=== PATIENT | male | born 1975 ===

== ENCOUNTER 2020-11-08 22:24 | Inpatient (IN) ==
[2020-11-08] MEDS ORDERED: IOPAMIDOL 100 ML BOTTLE IV ONE (22:25)
[2020-11-08] MEDS ORDERED: ONDANSETRON 4 MG/2 ML VIAL IV ONE (22:38)
[2020-11-08] MEDS ORDERED: VANCOMYCIN 2,000 MG in 0.9 % SODIUM CHLORIDE 500 ML IV ONE (22:38)
[2020-11-08] MEDS ORDERED: 0.9 % SODIUM CHLORIDE 1,000 ML IV ONE (22:38)
[2020-11-08] MEDS ORDERED: morphine 4 MG/ML VIAL IV PRN (22:38)
--- NOTE | 2020-11-08 22:38 | Emergency Department Note ---
HPI General Chief complaint: Extremity Problem,Nontraumatic Stated complaint: rg. leg edema Time Seen by Provider: 11/08/20 22:38 Source: EMS Mode of arrival: EMS Limitations: no limitations History of Present Illness HPI Narrative: Narrative: Patient is a 45-year-old male presents with a chief complaint of weakness fatigue and right lower extremity swelling and redness. Patient reports his symptoms started last Monday denies any history of MRSA denies any trauma reports he is normally able to ambulate without difficulty however he is having worsening pain redness and swelling from the right knee down. Denies any history of insulin-dependent diabetes. Denies headache neck pain chest pain or shortness of breath. Related Data Home Medications Medication Instructions Recorded Confirmed naloxone 4 mg/actuation nasal spray 1 spray INTRANASAL Q5MIN PRN 12/12/18 11/08/20 Previous Rx's Medication Instructions Recorded hydrocodone 10 mg-acetaminophen 1 tab PO .Q6-8H PRN #120 tab 10/13/20 325 mg tablet tramadol 300 mg tablet,extended 300 mg PO QDAY #30 tab 10/13/20 release 24 hr verapamil 360 mg 24 hr 360 mg PO QDAY #90 cap 10/13/20 capsule,extended release Allergies Allergy/AdvReac Type Severity Reaction Status Date / Time Penicillins AdvReac Unknown Unknown Verified 11/09/20 03:17 Review of Systems ROS ROS Narrative: Narrative: All systems ED: reviewed and negative except as stated. PFSH Narrative Patient History Narrative: Narrative: Medical/Surgical/Family History All Active Problems Cellulitis of right lower extremity (Acute) Leukocytosis (Acute) Elevated lactic acid level (Acute) Hyponatremia (Acute) URI (upper respiratory infection) (Acute) Allergic reaction to COVID-19 vaccine (Acute) Hypertension (Acute) Migraine (Acute) Insulin resistance (Chronic) Hypotestosteronemia (Chronic) Poor sleep (Chronic) Back pain (Chronic) Obesity (Chronic) Rhinitis, allergic (Chronic) HTN (hypertension) (Chronic) Fatigue (Chronic) Testosterone deficiency (Chronic) Metabolic syndrome X (Chronic) Chronic pain syndrome (Chronic) Lumbar back pain with radiculopathy affecting left lower extremity (Chronic) BMI 50.0-59.9, adult (Chronic) Anxiety disorder (Chronic) Depression (Chronic) Insomnia (Chronic) Medical History Anxiety disorder Back pain BMI 50.0-59.9, adult Chronic pain syndrome Depression Fatigue HTN (hypertension) Hypotestosteronemia Insomnia Insulin resistance Lumbar back pain with radiculopathy affecting left lower extremity Metabolic syndrome X Obesity Poor sleep Rhinitis, allergic Testosterone deficiency Surgical History No pertinent past surgical history Family History Mother Seizures Arthritis Father , Insulin OD Diabetes HTN (hypertension) Chronic mental illness Alcoholism Arthritis Social History Smoking Status: Never smoker Exam Narrative Narrative: Narrative: General Limitations: no limitations General appearance: Present alert Head Head: Present atraumatic and normocephalic Eye Eye: Present normal appearance, PERRL and EOMI ENT ENT: Present normal exam, normal oropharynx and mucous membranes dry Neck Neck: Present normal inspection, full ROM and trachea midline Chest Chest: Present normal inspection and symmetric chest wall rise Respiratory Respiratory: Present normal lung sounds bilaterally Cardiovascular Cardiovascular: Present regular rate and normal rhythm Adbominal Abdominal: Present soft, normal bowel sounds and other (Obese); Absent tenderness, guarding, rebound, organomegaly and pulsatile mass Extremities Extremities: Present tenderness, pedal edema, pretibial edema and other (Right lower extremity is diffusely tender and erythematous, compartments are soft, neurovascularly in tact, unable to bear weight no fluctuance or induration no inguinal lymphadenopathy or streaking.) Expanded Lower Extremity Knee: Present tenderness, swelling and erythema Lower leg: Present tenderness, swelling and erythema Ankle: Present tenderness, swelling and erythema Back Back: Present normal inspection and full ROM; Absent tenderness Neurological Neurological: Present alert, oriented X3, CN II-XII intact, normal gait, motor sensory deficit and reflexes normal Psychiatric Psychiatric: Present normal affect Skin Skin: Present erythema and other (Erythema noted diffusely to the right lower extremity from the knee down there are 2 separate areas of erythema with blistering, negative Nikolsky sign. Compartments soft, neurovascular tach.) Course Course Course Narrative: Initial history and physical exam is concerning for celluli tis. No free air seen on imaging, no abscess seen on imaging the CT of the right lower extremity with contrast shows diffuse edema of the right lower extremity mild associated skin thickening, appearance is nonspecific possibly reflecting cellulitis, anasarca or venous stasis. Right lower extremity ultrasound duplex right lower extremity the vein shows no deep venous thrombosis in the right lower extremity. Patient was given 3 L of IV fluids in the emergency department blood cultures were obtained, IV vancomycin and IV Rocephin given in the emergency department I spoke with the hospitalist Dr. Gupta who agreed to accept this patient for right lower extremity cellulitis, elevated lactate elevated white blood cell count and hyponatremia. Vital Signs Vital signs: Vital Signs Temperature 97.3 F 11/08/20 22:25 Pulse Rate 101 H 11/08/20 22:25 Respiratory Rate 20 11/08/20 22:25 Blood Pressure 135/68 11/08/20 22:25 Pulse Oximetry (%) 96 11/08/20 22:25 Temperature 100.6 F H 11/09/20 04:01 Pulse Rate 98 H 11/09/20 04:01 Respiratory Rate 18 11/09/20 04:01 Blood Pressure 142/81 11/09/20 04:01 Pulse Oximetry (%) 85 L 11/09/20 04:01 [facility] MDM Narrative Medical decision making narrative: Narrative: Right lower extremity cellulitis. Lab Data Result diagrams: 11/08/20 22:45 11/08/20 22:45 Labs: Lab Results 11/08/20 11/08/20 11/08/20 Range/Units 22:45 22:45 22:45 WBC 20.1 H (4.5-11.0) K/mcL RBC 4.12 L (4.50-5.90) M/mcL Hgb 12.1 L (13.5-16.5) g/dL Hct 39.1 L (41.0-55.0) % MCV 94.9 (80.0-100.0) fL MCH 29.4 (26.0-34.0) pg MCHC 30.9 L (31.0-36.0) g/dL RDW 14.1 (11.5-14.5) % Plt Count 146 (140-440) K/mcL MPV 11.0 H (7.4-10.4) fL Neut % (Auto) 84.9 H (38.0-78.0) % Lymph % (Auto) 6.7 L (15.0-49.0) % [place] % (Auto) 7.8 (1.0-12.0) % Eos % (Auto) 0.1 (0.0-7.0) % Baso % (Auto) 0.5 (0.0-2.0) % Lymph # (Auto) 1.35 L (1.50-4.80) K/mcL [place] # (Auto) 1.56 H (0.10-0.90) K/mcL Eos # (Auto) 0.02 (0.00-0.70) K/mcL Baso # (Auto) 0.10 (0.00-0.20) K/mcL Absolute Neutrophils 17.04 H (1.80-8.00) K/mcL ESR 95 H (0-15) mm/hr VBG Lactic Acid (0.5-2.0) mmol/L Sodium 130 L (133-145) mmol/L Potassium 4.0 (3.3-5.1) mmol/L Chloride 90 L (96-108) mmol/L Carbon Dioxide 17 L (22-30) mmol/L Anion Gap 23.0 H (8.0-16.0) BUN 13 (6-20) mg/dL Creatinine 1.2 (0.7-1.2) mg/dL GFR Calculation 73 Glucose 90 (70-105) mg/dL Calcium 8.8 (8.6-10.4) mg/dL Total Bilirubin 1.3 H (0.1-1.0) mg/dL AST 68 H (<40) U/L ALT 29 (<40) U/L Alkaline Phosphatase 112 (39-117) U/L C-Reactive Protein (0.03-0.80) mg/dL Total Protein 7.8 (5.9-8.4) gm/dL Albumin 2.7 L (3.2-5.2) gm/dL Globulin 5.1 H (2.2-3.7) gm/dL Albumin/Globulin Ratio 0.5 L (1.0-2.3) 11/08/20 11/08/20 Range/Units 22:45 23:05 WBC (4.5-11.0) K/mcL RBC (4.50-5.90) M/mcL Hgb (13.5-16.5) g/dL Hct (41.0-55.0) % MCV (80.0-100.0) fL MCH (26.0-34.0) pg MCHC (31.0-36.0) g/dL RDW (11.5-14.5) % Plt Count (140-440) K/mcL MPV (7.4-10.4) fL Neut % (Auto) (38.0-78.0) % Lymph % (Auto) (15.0-49.0) % [place] % (Auto) (1.0-12.0) % Eos % (Auto) (0.0-7.0) % Baso % (Auto) (0.0-2.0) % Lymph # (Auto) (1.50-4.80) K/mcL [place] # (Auto) (0.10-0.90) K/mcL Eos # (Auto) (0.00-0.70) K/mcL Baso # (Auto) (0.00-0.20) K/mcL Absolute Neutrophils (1.80-8.00) K/mcL ESR (0-15) mm/hr VBG Lactic Acid 5.6 H* (0.5-2.0) mmol/L Sodium (133-145) mmol/L Potassium (3.3-5.1) mmol/L Chloride (96-108) mmol/L Carbon Dioxide (22-30) mmol/L Anion Gap (8.0-16.0) BUN (6-20) mg/dL Creatinine (0.7-1.2) mg/dL GFR Calculation Glucose (70-105) mg/dL Calcium (8.6-10.4) mg/dL Total Bilirubin (0.1-1.0) mg/dL AST (<40) U/L ALT (<40) U/L Alkaline Phosphatase (39-117) U/L C-Reactive Protein 32.00 H (0.03-0.80) mg/dL Total Protein (5.9-8.4) gm/dL Albumin (3.2-5.2) gm/dL Globulin (2.2-3.7) gm/dL Albumin/Globulin Ratio (1.0-2.3) ED POC Tests ED POC Tests: JULISA - SARS Antigen Negative Discharge Plan Patient/Caregiver Discharge Instructions Pt seen by ROOM CLEANER/PA only: No Clinical Impression: Cellulitis of right lower extremity, Elevated lactic acid level, Hyponatremia Leukocytosis Qualifiers: Leukocytosis type: unspecified Qualified Code(s): D72.829 - Elevated white blood cell count, unspecified Patient Disposition: Xfer As Inpt ([facility]) Condition: Serious Discharge Date/Time: 11/09/20 02:11 Discharge Location: [facility]
[2020-11-09 00:04] LABS: Basophils % (Auto) 0.5 % (0.0-2.0); Eosinophils # (Auto) 0.02 K/mcL (0.00-0.70); Eosinophils % (Auto) 0.1 % (0.0-7.0); Hematocrit 39.1 % (41.0-55.0); Hemoglobin 12.1 g/dL (13.5-16.5); Lymphocytes # (Auto) 1.35 K/mcL (1.50-4.80); Lymphocytes % (Auto) 6.7 % (15.0-49.0); Mean Cell Volume 94.9 fL (80.0-100.0); Mean Corpuscular HGB Conc 30.9 g/dL (31.0-36.0); Monocytes # (Auto) 1.56 K/mcL (0.10-0.90); Monocytes % (Auto) 7.8 % (1.0-12.0); Neutrophils % (Auto) 84.9 % (38.0-78.0); Platelet Count 146 K/mcL (140-440); RBC 4.12 M/mcL (4.50-5.90); Red Cell Distribution Width 14.1 % (11.5-14.5); WBC 20.1 K/mcL (4.5-11.0)
[2020-11-09 00:22] LABS: ALT/SGPT 29 U/L (<40); AST/SGOT 68 U/L (<40); Albumin 2.7 gm/dL (3.2-5.2); Albumin/Globulin Ratio 0.5 (1.0-2.3); Alkaline Phosphatase 112 U/L (39-117); Bilirubin,Total 1.3 mg/dL (0.1-1.0); Blood Urea Nitrogen 13 mg/dL (6-20); Calcium 8.8 mg/dL (8.6-10.4); Carbon Dioxide 17 mmol/L (22-30); Chloride 90 mmol/L (96-108); Globulin 5.1 gm/dL (2.2-3.7); Glomerular Filtration Rate 73; Glucose 90 mg/dL (70-105)
[2020-11-09] MEDS ORDERED: 0.9 % SODIUM CHLORIDE 1,000 ML IV ONE ×2 (00:36→01:14)
[2020-11-09] MEDS ORDERED: morphine 4 MG/ML VIAL IV ONE (00:54)
[2020-11-09] MEDS ORDERED: cefTRIAXone 2 GM in DEXTROSE 5% IN WATER 50 ML IV ONE (01:02)
[2020-11-09] MEDS ORDERED: ACETAMINOPHEN 325 MG TABLET PO PRN ×2 (01:04→11:38)
[2020-11-09] MEDS ORDERED: morphine 2 MG/ML VIAL IV PRN (01:04)
[2020-11-09] MEDS ORDERED: SENNOSIDES 1 TABLET PO PRN ×3 (01:04→11:38)
[2020-11-09] MEDS ORDERED: LACTULOSE 20 GM/30 ML ORAL.SOL PO PRN ×2 (01:04→11:38)
[2020-11-09] MEDS ORDERED: ONDANSETRON 4 MG/2 ML VIAL IV PRN ×2 (01:04→11:38)
[2020-11-09] MEDS ORDERED: cefTRIAXone 2 GM VIAL ONE (02:35)
[2020-11-09] MEDS: 0.9 % SODIUM CHLORIDE 1,000 ML IV SCH ×2 (04:04→10:08)
--- NOTE | 2020-11-09 04:29 | Ultrasound Report ---
CLINICAL INFORMATION: Right calf pain and swelling COMPARISON: None. FINDINGS: The entire deep venous system including the common femoral, superficial femoral, popliteal and paired trifurcation calf veins are easily compressible and show normal venous blood flow on color and spectral Doppler. No evidence of thrombus IMPRESSION: Negative exam - no evidence of deep vein thrombosis. Interpreted and Authenticated by: Christofer Saini 11/09/20
--- NOTE | 2020-11-09 04:51 | Cat Scan Report ---
CLINICAL INFORMATION: right lower extremity pain, swelling, erythema COMPARISON: None. TECHNIQUE: 90 cc of Isovue-370 were injected intravenously. 0.625 mm slice slices were obtained from the mid femur through the calf foot and ankle. Following reconstruction, 2.5 m sagittal, coronal and axial reformatted images were processed and reviewed in bone and soft tissue windows.The exam was performed using radiation dose optimization techniques including, but not limited to, automated exposure control, adjustment of the mA and/or kV according to patient size and use of iterative reconstruction technique. 262 FINDINGS: Moderate edema or cellulitis is seen throughout the subcutaneous fat of the calf and ankle. There are no discrete fluid collection. Muscles and the fascia are unremarkable-no evidence of myositis or abscess. No osseous abnormality. Patellofemoral and tibiofemoral joints, ankle mortise and all the joints of the hindfoot and midfoot are normal in width and alignment without arthritic change. IMPRESSION: Moderate edema or cellulitis in the subcutaneous fat throughout the calf foot and ankle. Interpreted and Authenticated by: Christofer Saini 11/09/20
[2020-11-09] MEDS ORDERED: 0.9 % SODIUM CHLORIDE 10 ML SYRINGE IV SCH (06:00)
[2020-11-09] MEDS ORDERED: VANCOMYCIN PER PHARMACY IV SCH ×2 (07:44→11:38)
--- NOTE | 2020-11-09 07:44 | Internal Med History&Physical ---
HPI History of Present Illness Patient information: Note initiated : 11/09/20 at 7:37 am Service Date, if different from initiated Date: [] Patient: Jamie Parker a 45 y/o M admitted on 11/09/20 for rg. leg edema. Chief Complaint: [] History of present illness: Mr. Parker is a 45 year old M Presents to the ED with right lower extremity redness and swelling and pain. Patient states last Armen started building redness in his right lower extremity which progressed since I's as well as developing tenderness over that area and some swelling. Complained of chills. Work-up in the ED was consistent with cellulitis. CT imaging revealed suresh lulitis but did not show any fasciitis or abscess. He was febrile and had a leukocytosis and lactic acidosis. Sodium mildly low. Review of Systems: Pertinent positives as above. Denies headache/fever/nausea/vomiting/chest or abdominal pain/cough/dyspnea/diarrhea. Remaining 10 point review of system reviewed negative PFSH PFSH All Active Problems Cellulitis of right lower extremity (Acute) Leukocytosis (Acute) Elevated lactic acid level (Acute) Hyponatremia (Acute) URI (upper respiratory infection) (Acute) Allergic reaction to COVID-19 vaccine (Acute) Hypertension (Acute) Migraine (Acute) Insulin resistance (Chronic) Hypotestosteronemia (Chronic) Poor sleep (Chronic) Back pain (Chronic) Obesity (Chronic) Rhinitis, allergic (Chronic) HTN (hypertension) (Chronic) Fatigue (Chronic) Testosterone deficiency (Chronic) Metabolic syndrome X (Chronic) Chronic pain syndrome (Chronic) Lumbar back pain with radiculopathy affecting left lower extremity (Chronic) BMI 50.0-59.9, adult (Chronic) Anxiety disorder (Chronic) Depression (Chronic) Insomnia (Chronic) Medical History Anxiety disorder Back pain BMI 50.0-59.9, adult Chronic pain syndrome Depression Fatigue HTN (hypertension) Hypotestosteronemia Insomnia Insulin resistance Lumbar back pain with radiculopathy affecting left lower extremity Metabolic syndrome X Obesity Poor sleep Rhinitis, allergic Testosterone deficiency Surgical History No pertinent past surgical history Family History Mother Seizures Arthritis Father , Insulin OD Diabetes HTN (hypertension) Chronic mental illness Alcoholism Arthritis Social History occupational status: 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 MEDS/ALLERGIES Home Medications and Allergies Home Medications Medication Instructions Recorded Confirmed Type naloxone 4 mg/actuation nasal spray 1 spray INTRANASAL Q5MIN PRN 12/12/18 11/08/20 History hydrocodone 10 mg-acetaminophen 1 tab PO .Q6-8H PRN #120 tab 10/13/20 11/09/20 Rx 325 mg tablet tramadol 300 mg tablet,extended 300 mg PO QDAY #30 tab 10/13/20 11/09/20 Rx release 24 hr verapamil 360 mg 24 hr 360 mg PO QDAY #90 cap 10/13/20 11/09/20 Rx capsule,extended release Allergies Allergy/AdvReac Type Severity Reaction Status Date / Time Penicillins AdvReac Unknown Unknown Verified 11/09/20 03:17 EXAM Constitutional Vitals: Temp Pulse Resp BP Pulse Ox 100.6 F H 98 H 18 142/81 85 L 11/09/20 04:01 11/09/20 04:01 11/09/20 04:01 11/09/20 04:01 11/09/20 04:01 Exam: General: Alert, Awake, No acute Distress, obese Eyes/N/T: EOMI, PERRL, dry MM Head/Neck: neck supple, normocephalic atraumatic CV: RRR, No murmurs, normal s1/s2 Pulm: Clear b/l, no wheezing/rhonchi/rales Abd: soft, nontender, +BS x4 Ext: no clubbing/cyanosis. RLE erythema/edema/tenderness Neuro: Alert, no focal deficits, moves all extremities, CN 2-12 grossly intact, symmetrical strength b/l upper/lower, sensations intact b/l upper/lower Skin: warm/dry DATA Data Completed and Pending Labs: Labs from last 24 hours 11/08/20 11/08/20 11/08/20 23:05 22:45 22:45 WBC RBC Hgb Hct MCV MCH MCHC RDW Plt Count MPV Neut % (Auto) Lymph % (Auto) [place] % (Auto) Eos % (Auto) Baso % (Auto) Lymph # (Auto) [place] # (Auto) Eos # (Auto) Baso # (Auto) Absolute Neutrophils ESR 95 H VBG Lactic Acid 5.6 H* Sodium Potassium Chloride Carbon Dioxide Anion Gap BUN Creatinine GFR Calculation Glucose Calcium Total Bilirubin AST ALT Alkaline Phosphatase C-Reactive Protein 32.00 H Total Protein Albumin Globulin Albumin/Globulin Ratio 11/08/20 11/08/20 22:45 22:45 WBC 20.1 H RBC 4.12 L Hgb 12.1 L Hct 39.1 L MCV 94.9 MCH 29.4 MCHC 30.9 L RDW 14.1 Plt Count 146 MPV 11.0 H Neut % (Auto) 84.9 H Lymph % (Auto) 6.7 L [place] % (Auto) 7.8 Eos % (Auto) 0.1 Baso % (Auto) 0.5 Lymph # (Auto) 1.35 L [place] # (Auto) 1.56 H Eos # (Auto) 0.02 Baso # (Auto) 0.10 Absolute Neutrophils 17.04 H ESR VBG Lactic Acid Sodium 130 L Potassium 4.0 Chloride 90 L Carbon Dioxide 17 L Anion Gap 23.0 H BUN 13 Creatinine 1.2 GFR Calculation 73 Glucose 90 Calcium 8.8 Total Bilirubin 1.3 H AST 68 H ALT 29 Alkaline Phosphatase 112 C-Reactive Protein Total Protein 7.8 Albumin 2.7 L Globulin 5.1 H Albumin/Globulin Ratio 0.5 L A/P Narrative A/P Narrative: A: *RLE cellulitis: *sepsis w/lactic acidosis(resolved): -febrile, leukocytosis w/bandemia *met acidosis: resolved *Hyponatremia: *HTN: *Chronic pain: *Obesity: * P: -Vanc/cefepime, clinda x48hrs, pending BC, mrsa screen -s/p ivf -cont home ccb -elevate leg -wound care -ppx: lovenox Time Spent With Patient Time: Total time spent is greater than 50% in coordination of care (as documented) at patient's floor/unit and/or counseling patient:
[2020-11-09] MEDS ORDERED: HYDROcodone/APAP 10/325MG TABLET PO PRN (07:47)
[2020-11-09] MEDS ORDERED: cefTRIAXone 2 GM in DEXTROSE 5% IN WATER 50 ML IV SCH (08:00)
[2020-11-09 08:58] LABS: Hemoglobin 11.6 g/dL (13.5-16.5); Mean Cell Volume 91.8 fL (80.0-100.0); Mean Corpuscular HGB Conc 32.2 g/dL (31.0-36.0); Mean Platelet Volume 10.1 fL (7.4-10.4); Platelet Count 156 K/mcL (140-440); RBC 3.92 M/mcL (4.50-5.90); WBC 18.8 K/mcL (4.5-11.0)
[2020-11-09] MEDS ORDERED: VANCOMYCIN 1,500 MG in 0.9 % SODIUM CHLORIDE 500 ML IV SCH (09:00)
[2020-11-09] MEDS ORDERED: TRAMADOL 300 MG PO SCH (09:00)
[2020-11-09] MEDS ORDERED: ENOXAPARIN 60 MG/0.6 ML SYRINGE SQ SCH (09:00)
[2020-11-09] MEDS ORDERED: VERAPAMIL 180 MG TAB.XL.24H PO SCH (09:00)
[2020-11-09] MEDS ORDERED: DOCUSATE SODIUM 100 MG CAPSULE PO SCH ×2 (09:00→21:00)
[2020-11-09 09:11] LABS: ALT/SGPT 25 U/L (<40); AST/SGOT 55 U/L (<40); Albumin 3.1 gm/dL (3.2-5.2); Albumin/Globulin Ratio 0.8 (1.0-2.3); Alkaline Phosphatase 131 U/L (39-117); Bilirubin,Direct 0.5 mg/dL (<0.3); Bilirubin,Total 0.7 mg/dL (0.1-1.0); Blood Urea Nitrogen 10 mg/dL (6-20); Calcium 8.3 mg/dL (8.6-10.4); Carbon Dioxide 27 mmol/L (22-30); Chloride 96 mmol/L (96-108); Glomerular Filtration Rate 108; Glucose 115 mg/dL (70-105); Lactate Dehydrogenase 288 U/L (135-225); Phosphorous 2.1 mg/dL (2.5-4.5); Triglycerides 113 mg/dL (<150); Uric Acid 6.3 mg/dL (2.5-8.0)
[2020-11-09 09:30] LABS: Band Neutrophils % 30 % (0-10); Lymphocytes % 6 % (15-49); Monocytes % (Manual) 2 % (1-12); Platelet Estimate NORMAL (Normal); RBC Morphology NORMAL (Normal); Segmented Neutrophils % 62 % (38-78); Toxic Granulation FEW (None Seen)
[2020-11-09] MEDS ORDERED: hydrALAZINE 20 MG/ML VIAL IV PRN (10:45)
[2020-11-09] MEDS ORDERED: CLINDAMYCIN 600 MG in DEXTROSE 5% IN WATER 50 ML IV SCH (11:00)
[2020-11-09] MEDS ORDERED: POTASSIUM CHLORIDE 20 MEQ TABLET PO PRN ×2 (11:38)
[2020-11-09] MEDS ORDERED: MAGNESIUM SULFATE 2 GM/50 ML BAG IV PRN (11:38)
[2020-11-09] MEDS ORDERED: POTASSIUM CHLORIDE 40 MEQ in DEXTROSE 5% IN WATER 500 ML IV PRN (11:38)
[2020-11-09] MEDS ORDERED: IOPAMIDOL 100 ML BOTTLE IV ONE (11:38)
[2020-11-09] MEDS ORDERED: POLYETHYLENE GLYCOL 3350 17 GM PACKET PO PRN (11:38)
[2020-11-09] MEDS: 0.9 % SODIUM CHLORIDE 10 ML SYRINGE IV SCH ×4 (12:03→22:00)
[2020-11-09] MEDS: morphine 2 MG/ML VIAL IV PRN ×2 (13:25→18:54)
[2020-11-09] MEDS: HYDROcodone/APAP 10/325MG TABLET PO PRN ×2 (16:17→22:16)
[2020-11-09] MEDS: ONDANSETRON 4 MG/2 ML VIAL IV PRN (18:54)
[2020-11-09] MEDS: ENOXAPARIN 60 MG/0.6 ML SYRINGE SQ SCH (20:37)
[2020-11-09] MEDS: DOCUSATE SODIUM 100 MG CAPSULE PO SCH (20:37)
[2020-11-09] MEDS: VANCOMYCIN 1,500 MG in 0.9 % SODIUM CHLORIDE 500 ML IV SCH (20:37)
[2020-11-09] MEDS: CLINDAMYCIN 600 MG in DEXTROSE 5% IN WATER 50 ML IV SCH (21:52)
[2020-11-10] MEDS: HYDROcodone/APAP 10/325MG TABLET PO PRN ×4 (04:24→21:42)
[2020-11-10] MEDS: ONDANSETRON 4 MG/2 ML VIAL IV PRN ×2 (04:25→16:39)
[2020-11-10] MEDS: CLINDAMYCIN 600 MG in DEXTROSE 5% IN WATER 50 ML IV SCH ×3 (05:51→22:00)
[2020-11-10] MEDS: 0.9 % SODIUM CHLORIDE 10 ML SYRINGE IV SCH ×4 (05:52→20:14)
[2020-11-10 06:54] LABS: Hematocrit 35.1 % (41.0-55.0); Hemoglobin 11.2 g/dL (13.5-16.5); Mean Cell Volume 93.1 fL (80.0-100.0); Mean Corpuscular HGB Conc 31.9 g/dL (31.0-36.0); Mean Platelet Volume 10.6 fL (7.4-10.4); Platelet Count 177 K/mcL (140-440); RBC 3.77 M/mcL (4.50-5.90); Red Cell Distribution Width 14.5 % (11.5-14.5); WBC 15.7 K/mcL (4.5-11.0)
[2020-11-10 07:27] LABS: ALT/SGPT 22 U/L (<40); AST/SGOT 43 U/L (<40); Albumin 2.2 gm/dL (3.2-5.2); Albumin/Globulin Ratio 0.5 (1.0-2.3); Alkaline Phosphatase 138 U/L (39-117); Bilirubin,Direct 0.4 mg/dL (<0.3); Bilirubin,Total 0.6 mg/dL (0.1-1.0); Blood Urea Nitrogen 11 mg/dL (6-20); Calcium 8.3 mg/dL (8.6-10.4); Carbon Dioxide 26 mmol/L (22-30); Chloride 99 mmol/L (96-108); Globulin 4.7 gm/dL (2.2-3.7); Glomerular Filtration Rate 114; Glucose 119 mg/dL (70-105); Lactate Dehydrogenase 311 U/L (135-225); Phosphorous 2.6 mg/dL (2.5-4.5); Triglycerides 111 mg/dL (<150); Uric Acid 5.9 mg/dL (2.5-8.0)
[2020-11-10] MEDS: cefTRIAXone 2 GM in DEXTROSE 5% IN WATER 50 ML IV SCH (08:00)
[2020-11-10 08:03] LABS: Band Neutrophils % 16 % (0-10); Lymphocytes % 10 % (15-49); Monocytes % (Manual) 4 % (1-12); Myelocytes % 1 %; Nucleated Red Blood Cells 1 % (0-0); Platelet Estimate NORMAL (Normal); RBC Morphology NORMAL (Normal); Segmented Neutrophils % 69 % (38-78)
--- NOTE | 2020-11-10 08:36 | Internal Med Progress Note ---
SUBJECTIVE Subjective Patient information: Note initiated : 11/10/20 at 8:32 am Service Date, if different from initiated Date: [] Patient: Jamie Parker 45 y/o M admitted on 11/09/20 for rt leg edema. Chief Complaint: [] Interval history: History of present illness: Mr. Parker is a 45 year old M Presents to the ED with right lower extremity redness and swelling and pain. Patient states last Monday started building redness in his right lower extremity which progressed since I's as well as developing tenderness over that area and some swelling. Complained of chills. Work-up in the ED was consistent with cellulitis. CT imaging revealed cellulitis but did not show any fasciitis or abscess. He was febrile and had a leukocytosis and lactic acidosis. Sodium mildly low. 11/10 Patient has some nausea this morning. A little bit of indigestion. Tolerated yogurt okay this morning. [place] ptosis improving. Sodium normalized. Review of Systems: denies headache/fever/chills/vomiting/chest pain/cough/dyspnea/diarrhea. Otherwise see above. Constitutional Vitals: Vital Signs Temp Pulse Resp BP Pulse Ox 100.0 F H 82 18 157/75 98 11/10/20 04:29 11/10/20 04:29 11/10/20 06:55 11/10/20 03:38 11/10/20 06:55 Period Temp Pulse Resp BP Sys/Paulino Pulse Ox Last 24 Hr 99.0 F-100.1 F 67-82 13-19 135-158/71-85 94-98 Intake and Output 11/09/20 11/10/20 11/10/20 21:59 05:59 13:59 Intake Total 200 954 54 Output Total 900 400 Balance -700 554 54 Weight 192.187 kg Intake & Output: Intake & Output 11/09/20 11/10/20 11/10/20 21:59 05:59 13:59 Intake Total 200 954 54 Output Total 900 400 Balance -700 554 54 Weight 192.187 kg Intake: IV 554 54 Cleocin 600 mg In Dextrose 5% 54 54 in Water 50 ml @ 100 mls/hr IV Q8H [facility] Rx#:[id number] Vancomycin 1,500 mg In Sodium 500 Chloride 0.9% 500 ml @ 333.3 mls/hr IV Q12H [facility] Rx#: [id number] Oral 200 400 Output: Urine Catheter Amount 900 400 Other: Meal Dinner Percent of Meal Consumed 50% Feeding Ability Independent Urine Appearance Clear Clear Uretheral ([place]) Clear Clear Clear Urine Color Dark Yellow Dark Yellow Uretheral ([place]) Dark Yellow Urine Odor Normal Strong Uretheral ([place]) Normal Strong Exam: General: Alert, Awake, No acute Distress, obese Eyes/N/T: EOMI, Head/Neck: neck supple, CV: RRR, No murmurs, Pulm: Clear b/l, no wheezing/rhonchi/rales Abd: soft, nontender, +BS x4 Ext: no clubbing/cyanosis. mild b/l edema R>L RLE erythema/edema/tenderness Neuro: Alert, no focal deficits, moves all extremities, Skin: warm/dry OBJ DATA Labs CBC & Chem 7: 11/10/20 05:27 11/10/20 05:27 Labs: Abnormal Lab Results 11/10/20 11/10/20 11/09/20 05:27 05:27 08:02 WBC 15.7 H RBC 3.77 L Hgb 11.2 L Hct 35.1 L MCHC MPV 10.6 H Neut % (Auto) Lymph % (Auto) Lymph # (Auto) [place] # (Auto) Band Neutrophils % 16 H Lymphocytes % 10 L Absolute Neutrophils Nucleated RBCs 1 H WBC Morphology Toxic Granulation ESR VBG Lactic Acid Sodium 132 L Chloride Carbon Dioxide Anion Gap Glucose 119 H 115 H Calcium 8.3 L 8.3 L Phosphorus 2.1 L Total Bilirubin Direct Bilirubin 0.4 H 0.5 H GGT 72 H 75 H AST 43 H 55 H Alkaline Phosphatase 138 H 131 H Lactate Dehydrogenase 311 H 288 H C-Reactive Protein 27.40 H 32.10 H Albumin 2.2 L 3.1 L Globulin 4.7 H 4.0 H Albumin/Globulin Ratio 0.5 L 0.8 L 11/09/20 11/08/20 11/08/20 08:02 23:05 22:45 WBC 18.8 H RBC 3.92 L Hgb 11.6 L Hct 36.0 L MCHC MPV Neut % (Auto) Lymph % (Auto) Lymph # (Auto) [place] # (Auto) Band Neutrophils % 30 H Lymphocytes % 6 L Absolute Neutrophils Nucleated RBCs WBC Morphology Abnormal A Toxic Granulation Few A ESR VBG Lactic Acid 5.6 H* Sodium Chloride Carbon Dioxide Anion Gap Glucose Calcium Phosphorus Total Bilirubin Direct Bilirubin GGT AST Alkaline Phosphatase Lactate Dehydrogenase C-Reactive Protein 32.00 H Albumin Globulin Albumin/Globulin Ratio 11/08/20 11/08/20 11/08/20 22:45 22:45 22:45 WBC 20.1 H RBC 4.12 L Hgb 12.1 L Hct 39.1 L MCHC 30.9 L MPV 11.0 H Neut % (Auto) 84.9 H Lymph % (Auto) 6.7 L Lymph # (Auto) 1.35 L [place] # (Auto) 1.56 H Band Neutrophils % Lymphocytes % Absolute Neutrophils 17.04 H Nucleated RBCs WBC Morphology Toxic Granulation ESR 95 H VBG Lactic Acid Sodium 130 L Chloride 90 L Carbon Dioxide 17 L Anion Gap 23.0 H Glucose Calcium Phosphorus Total Bilirubin 1.3 H Direct Bilirubin GGT AST 68 H Alkaline Phosphatase Lactate Dehydrogenase C-Reactive Protein Albumin 2.7 L Globulin 5.1 H Albumin/Globulin Ratio 0.5 L Meds: Medications Acetaminophen (Acetaminophen 325 Mg Tablet) 650 mg PO Q6HP PRN; Protocol PRN Reason: Per Pain Protocol/Fever > 101 Hydrocodone Bitart/Acetaminophen (Hydrocodone/Apap 10/325mg Tablet) 1 tab PO Q6-8HP PRN; Protocol PRN Reason: pain Last Admin: 11/10/20 04:24 Dose: 1 tab Documented by: Docusate Sodium (Docusate Sodium 100 Mg Capsule) 100 mg PO BID [facility] Last Admin: 11/09/20 20:37 Dose: 100 mg Documented by: Enoxaparin Sodium (Enoxaparin 60 Mg/0.6 Ml Syringe) 60 mg SQ BID [facility] Last Admin: 11/09/20 20:37 Dose: 60 mg Documented by: Hydralazine HCl (Hydralazine 20 Mg/Ml Vial) 0 mg IV Q2HP PRN PRN Reason: Hypertension Ceftriaxone Sodium 2 gm/ (Dextrose) 50 mls @ 100 mls/hr IV Q24H [facility]; Protocol Clindamycin Phosphate 600 mg/ (Dextrose) 54 mls @ 100 mls/hr IV Q8H [facility]; Protocol Stop: 11/11/20 06:33 Last Infusion: 11/10/20 06:26 Dose: Infused Documented by: Vancomycin HCl 1,500 mg/ (Sodium Chloride) 500 mls @ 333.3 mls/hr IV Q12H JENNIFER Last Infusion: 11/10/20 05:47 Dose: Infused Documented by: Potassium Chloride 40 meq/ (Dextrose) 520 mls @ 130 mls/hr IV UD PRN PRN Reason: Potassium < 3 Magnesium Sulfate (Magnesium Sulfate) 2 gm in 50 mls @ 50 mls/hr IV UD PRN PRN Reason: Magnesium </= 1.6 Lactulose (Lactulose 20 Gm/30 Ml Oral.Sheri) 10 gm PO DAILYP PRN PRN Reason: Constipation Metoclopramide HCl (Metoclopramide 10 Mg/2 Ml Vial) 10 mg IV Q6HP PRN PRN Reason: Nausea And Vomiting Morphine Sulfate (Morphine 2 Mg/Ml Vial) 1 - 4 mg IV Q3H PRN PRN Reason: pain Last Admin: 11/09/20 18:54 Dose: 4 mg Documented by: Ondansetron HCl (Ondansetron 4 Mg/2 Ml Vial) 4 mg IV Q4HP PRN; Protocol PRN Reason: Nausea And Vomiting Last Admin: 11/10/20 04:25 Dose: 4 mg Documented by: Polyethylene Glycol (Polyethylene Glycol 3350 17 Gm Packet) 17 gm PO DAILYP PRN PRN Reason: Constipation Potassium Chloride (Potassium Chloride 20 Meq Tablet) 40 meq PO UD PRN PRN Reason: Potssium is 3-3.5 Potassium Chloride (Potassium Chloride 20 Meq Tablet) 40 meq PO UD PRN PRN Reason: Potassium < 3 Senna (Sennosides 1 Tablet) 2 tab PO DAILYP PRN PRN Reason: Constipation Sodium Chloride (0.9 % Sodium Chloride 10 Ml Syringe) 10 ml IV Q8 JNENIFER Last Admin: 11/10/20 05:52 Dose: 10 ml Documented by: Sodium Chloride (0.9 % Sodium Chloride 10 Ml Syringe) 10 ml IV Q8 JENNIFER Last Admin: 11/10/20 06:29 Dose: 10 ml Documented by: Vancomycin HCl (Vancomycin Per Pharmacy) 1 order IV UD [facility]; Protocol Verapamil HCl (Verapamil 180 Mg Tab.Xl.24h) 360 mg PO QDAY JENNIFER A/P Narrative A/P Narrative: A: *RLE cellulitis: -CT no abscess/fasciitis *Bacteremia(GPC 1/4): contaminant vs 2/2 above *sepsis w/lactic acidosis(resolved): -fever curve improving, leukocytosis w/bandemia improving *met acidosis: resolved *Hyponatremia: resolved *HTN: *Chronic pain: *Obesity: * P: -Vanc/cefepime, clinda x48hrs, pending BC, mrsa screen -lasix today -cont home ccb -elevate leg -wound care -ppx: lovenox Time Spent With Patient Time: Total time spent is greater than 50% in coordination of care (as documented) at patient's floor/unit and/or counseling patient:
[2020-11-10] MEDS: VANCOMYCIN 1,500 MG in 0.9 % SODIUM CHLORIDE 500 ML IV SCH ×2 (09:29→20:05)
[2020-11-10] MEDS: DOCUSATE SODIUM 100 MG CAPSULE PO SCH ×2 (10:24→20:03)
[2020-11-10] MEDS ORDERED: FUROSEMIDE 40 MG/4 ML VIAL IV ONE (10:43)
[2020-11-10] MEDS ORDERED: ALBUMIN HUMAN 12.5 GM/50 ML BAG IV ONE ×2 (10:43→17:00)
[2020-11-10] MEDS: ENOXAPARIN 60 MG/0.6 ML SYRINGE SQ SCH ×2 (10:49→20:03)
[2020-11-10] MEDS: VERAPAMIL 180 MG TAB.XL.24H PO SCH (10:49)
[2020-11-10] MEDS: morphine 2 MG/ML VIAL IV PRN ×3 (11:09→20:21)
[2020-11-10] MEDS ORDERED: FUROSEMIDE 20 MG/2 ML VIAL IV ONE (17:00)
--- NOTE | 2020-11-10 18:08 | General Surgery Consult Note ---
HPI Data of Consult Consult date: 11/10/20 Requesting physician: Micheal Gupta Primary Care Provider: Shaniqua Witt Consult Narrative Patient Information: Note initiated : 11/10/20 at 5:53 pm Service Date, if different from initiated Date: [] Patient: Jamie Parker 45 y/o M admitted on 11/09/20 for rt leg edema. Chief Complaint: [] cc:: CC: Micheal Gupta I saw this patient along with Irina RN, Inpatient wound care nurse. Patient had been symptomatic for > 6 days. PAIN, Erythema, Cellulitis with blisters of leg and thigh. Not sure how it all started. Progressively started feeling increased pain with inability to bear weight and walk on Right leg. Came to the ER, evaluated and admitted. 45/M Admitted via ER with SEPSIS and evolving SIRS due to CSSSI. Right lower Extremity. Cellulitis with lymphatic blisters of leg and thigh. Constitutional Constitutional: Present as per HPI Integumentary Integumentary: Present as per HPI, erythema, lesions, new lesions, skin ulcer, swelling and wounds Additional comments: There was increased pain and lymphatic drainage around RIGHT lower medial leg / Epidermal ulcer and dermatitis site. This spread more proximally up to lower thigh and developed clear fluid filled blister. PFSH PFSH All Active Problems Cellulitis of right lower extremity (Acute) Leukocytosis (Acute) Elevated lactic acid level (Acute) Hyponatremia (Acute) URI (upper respiratory infection) (Acute) Allergic reaction to COVID-19 vaccine (Acute) Hypertension (Acute) Migraine (Acute) Insulin resistance (Chronic) Hypotestosteronemia (Chronic) Poor sleep (Chronic) Back pain (Chronic) Obesity (Chronic) Rhinitis, allergic (Chronic) HTN (hypertension) (Chronic) Fatigue (Chronic) Testosterone deficiency (Chronic) Metabolic syndrome X (Chronic) Chronic pain syndrome (Chronic) Lumbar back pain with radiculopathy affecting left lower extremity (Chronic) BMI 50.0-59.9, adult (Chronic) Anxiety disorder (Chronic) Depression (Chronic) Insomnia (Chronic) Medical History Anxiety disorder Back pain BMI 50.0-59.9, adult Chronic pain syndrome Depression Fatigue HTN (hypertension) Hypotestosteronemia Insomnia Insulin resistance Lumbar back pain with radiculopathy affecting left lower extremity Metabolic syndrome X Obesity Poor sleep Rhinitis, allergic Testosterone deficiency Surgical History No pertinent past surgical history Family History Mother Seizures Arthritis Father , Insulin OD Diabetes HTN (hypertension) Chronic mental illness Alcoholism Arthritis Social History occupational status: 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 MEDS/ALLERGIES Home Medications and Allergies Home Medications Medication Instructions Recorded Confirmed Type naloxone 4 mg/actuation nasal spray 1 spray INTRANASAL Q5MIN PRN 12/12/18 11/08/20 History hydrocodone 10 mg-acetaminophen 1 tab PO .Q6-8H PRN #120 tab 10/13/20 11/09/20 Rx 325 mg tablet tramadol 300 mg tablet,extended 300 mg PO QDAY #30 tab 10/13/20 11/09/20 Rx release 24 hr verapamil 360 mg 24 hr 360 mg PO QDAY #90 cap 10/13/20 11/09/20 Rx capsule,extended release Allergies Allergy/AdvReac Type Severity Reaction Status Date / Time Penicillins AdvReac Unknown Unknown Verified 11/09/20 03:17 Physical Examination Vital Signs Vital signs: Temp Pulse Resp BP Pulse Ox 98.7 F 76 22 128/72 95 11/10/20 16:05 11/10/20 16:00 11/10/20 16:00 11/10/20 16:00 11/10/20 16:00 General physical appearance General physical exam: obese (Morbidly obese. Metabolic syndrome X. ) Eyes Eye exam: PERRL and normal ocular movement ENT ENT exam: normal pinna, normal mucosa and no congestion Head Head exam IM: Present atraumatic and normocephalic Neck Neck exam: no masses, trachea midline and no venous distension Cardiovascular Cardiovascular exam IM: Present normal rate and rhythm Respiratory Respiratory exam: normal expansion and clear to auscultation Abdomen Abdomen: Present soft, non tender and bowel sounds Integumentary Integumentary: Present other (Pleomorphic skin lesions, rash, dermatitis and blisters along medial ankle, leg, knee and extend towards medial lower thigh. As marked out on skin. ) Neurologic Neurologic: Present normal coordination and normal sensation Musculoskeletal Musculoskeletal: Present other (Currently unable to stand or bear weight on RIGHT leg due to pain and inflammation. ) Psychiatric Psychiatric: Present oriented to time, oriented to person, oriented to place, speech is normal and memory intact Additional Findings Additional exam: Reviewed lab results and Imaging studies. Progress reviewed and case discussed with Dr. gupta. Results Labs Result diagrams: 11/10/20 05:27 11/10/20 05:27 Labs: Abnormal lab results 11/10/20 11/10/20 Range/Units 05:27 05:27 WBC 15.7 H (4.5-11.0) K/mcL RBC 3.77 L (4.50-5.90) M/mcL Hgb 11.2 L (13.5-16.5) g/dL Hct 35.1 L (41.0-55.0) % MPV 10.6 H (7.4-10.4) fL Band Neutrophils % 16 H (0-10) % Lymphocytes % 10 L (15-49) % Nucleated RBCs 1 H (0-0) % Glucose 119 H (70-105) mg/dL Calcium 8.3 L (8.6-10.4) mg/dL Direct Bilirubin 0.4 H (<0.3) mg/dL GGT 72 H (8-61) U/L AST 43 H (<40) U/L Alkaline Phosphatase 138 H (39-117) U/L Lactate Dehydrogenase 311 H (135-225) U/L C-Reactive Protein 27.40 H (0.03-0.80) mg/dL Albumin 2.2 L (3.2-5.2) gm/dL Globulin 4.7 H (2.2-3.7) gm/dL Albumin/Globulin Ratio 0.5 L (1.0-2.3) Diabetes panel 11/10/20 Range/Units 05:27 Sodium 136 (133-145) mmol/L Potassium 3.6 (3.3-5.1) mmol/L Chloride 99 (96-108) mmol/L Carbon Dioxide 26 (22-30) mmol/L BUN 11 (6-20) mg/dL Creatinine 0.7 (0.7-1.2) mg/dL Glucose 119 H (70-105) mg/dL Calcium 8.3 L (8.6-10.4) mg/dL AST 43 H (<40) U/L ALT 22 (<40) U/L Alkaline Phosphatase 138 H (39-117) U/L Total Protein 6.9 (5.9-8.4) gm/dL Albumin 2.2 L (3.2-5.2) gm/dL Triglycerides 111 (<150) mg/dL Calcium panel 11/10/20 Range/Units 05:27 Calcium 8.3 L (8.6-10.4) mg/dL Phosphorus 2.6 (2.5-4.5) mg/dL Albumin 2.2 L (3.2-5.2) gm/dL Pituitary panel 11/10/20 Range/Units 05:27 Sodium 136 (133-145) mmol/L Potassium 3.6 (3.3-5.1) mmol/L Chloride 99 (96-108) mmol/L Carbon Dioxide 26 (22-30) mmol/L BUN 11 (6-20) mg/dL Creatinine 0.7 (0.7-1.2) mg/dL Glucose 119 H (70-105) mg/dL Calcium 8.3 L (8.6-10.4) mg/dL Adrenal panel 11/10/20 Range/Units 05:27 Sodium 136 (133-145) mmol/L Potassium 3.6 (3.3-5.1) mmol/L Chloride 99 (96-108) mmol/L Carbon Dioxide 26 (22-30) mmol/L BUN 11 (6-20) mg/dL Creatinine 0.7 (0.7-1.2) mg/dL Glucose 119 H (70-105) mg/dL Calcium 8.3 L (8.6-10.4) mg/dL Total Bilirubin 0.6 (0.1-1.0) mg/dL AST 43 H (<40) U/L ALT 22 (<40) U/L Alkaline Phosphatase 138 H (39-117) U/L Total Protein 6.9 (5.9-8.4) gm/dL Albumin 2.2 L (3.2-5.2) gm/dL All other labs normal. A/P Narrative A/P Narrative: Assessment: SEPSIS, CSSSI improving. Morbid obesity Metabolic Syndrome X HTN Insulin resistance Depression Anxiety Plan: See wound care orders per Irina WOODS. Will be following this patient along with Hospitalist. Time Spent With Patient Time: Total time spent is greater than 50% in coordination of care (as documented) at patient's floor/unit and/or counseling patient:
[2020-11-10] MEDS ORDERED: diphenhydrAMINE 25 MG CAPSULE PO PRN (18:47)
[2020-11-10] MEDS ORDERED: MELATONIN 3 MG TABLET PO PRN (18:47)
[2020-11-10] MEDS: CALCIUM CARBONATE 500 MG TAB.CHEW CHEWED PRN (19:39)
[2020-11-10] MEDS: METOCLOPRAMIDE 10 MG/2 ML VIAL IV PRN (19:40)
[2020-11-11] MEDS: HYDROcodone/APAP 10/325MG TABLET PO PRN ×4 (02:19→19:14)
[2020-11-11] MEDS: hydrALAZINE 20 MG/ML VIAL IV PRN ×2 (04:00→15:18)
[2020-11-11] MEDS: 0.9 % SODIUM CHLORIDE 10 ML SYRINGE IV SCH ×3 (04:07→20:51)
[2020-11-11] MEDS: CLINDAMYCIN 600 MG in DEXTROSE 5% IN WATER 50 ML IV SCH (06:08)
[2020-11-11 06:34] LABS: Hematocrit 37.3 % (41.0-55.0); Hemoglobin 11.8 g/dL (13.5-16.5); Mean Cell Volume 93.5 fL (80.0-100.0); Mean Corpuscular HGB Conc 31.6 g/dL (31.0-36.0); Mean Platelet Volume 10.1 fL (7.4-10.4); Platelet Count 228 K/mcL (140-440); RBC 3.99 M/mcL (4.50-5.90); Red Cell Distribution Width 14.7 % (11.5-14.5); WBC 12.6 K/mcL (4.5-11.0)
[2020-11-11 07:01] LABS: Blood Urea Nitrogen 10 mg/dL (6-20); Calcium 8.6 mg/dL (8.6-10.4); Carbon Dioxide 28 mmol/L (22-30); Chloride 101 mmol/L (96-108); Glomerular Filtration Rate 114; Glucose 91 mg/dL (70-105)
--- NOTE | 2020-11-11 07:51 | Internal Med Progress Note ---
SUBJECTIVE Subjective Patient information: Note initiated : 11/11/20 at 7:48 am Service Date, if different from initiated Date: [] Patient: Jamie Parker 45 y/o M admitted on 11/09/20 for rt leg edema. Chief Complaint: [] Interval history: History of present illness: Mr. Parker is a 45 year old M Presents to the ED with right lower extremity redness and swelling and pain. Patient states last Monday started building redness in his right lower extremity which progressed since I's as well as developing tenderness over that area and some swelling. Complained of chills. Work-up in the ED was consistent with cellulitis. CT imaging revealed cellulitis but did not show any fasciitis or abscess. He was febrile and had a leukocytosis and lactic acidosis. Sodium mildly low. 11/10 Patient has some nausea this morning. A little bit of indigestion. Tolerated yogurt okay this morning. [place] ptosis improving. Sodium normalized. 11/11 Slept better. No new complaints. Right leg pain seems to be better and less pressure. Afebrile overnight. [place] ptosis improving Review of Systems: denies headache/fever/chills/vomiting/chest pain/cough/dyspnea/diarrhea. Otherwise see above. Constitutional Vitals: Vital Signs Temp Pulse Resp BP Pulse Ox 98.4 F 76 16 135/78 90 11/11/20 03:32 11/11/20 03:32 11/11/20 03:32 11/11/20 04:26 11/11/20 03:32 Period Temp Pulse Resp BP Sys/Paulino Pulse Ox Last 24 Hr 97.7 F-99.7 F 68-88 14-22 126-160/69-89 90-95 Intake and Output 11/10/20 11/11/20 11/11/20 21:59 05:59 13:59 Intake Total 2104 234 Output Total 1900 1175 Balance 204 -941 Weight 196.088 kg Intake & Output: Intake & Output 11/10/20 11/11/20 11/11/20 21:59 05:59 13:59 Intake Total 2104 234 Output Total 1900 1175 Balance 204 -941 Weight 196.088 kg Intake: IV 604 54 Cleocin 600 mg In Dextrose 5% 54 54 in Water 50 ml @ 100 mls/hr IV Q8H [facility] Rx#:[id number] Vancomycin 1,500 mg In Sodium 500 Chloride 0.9% 500 ml @ 333.3 mls/hr IV Q12H [facility] Rx#: [id number] Oral 1500 180 Output: Urine Catheter Amount 1175 Void Amount 1900 Other: Urine Appearance Clear Clear Uretheral ([place]) Clear Clear Urine Color Pale Dark Yellow Uretheral ([place]) Dark Yellow Dark Yellow Urine Odor Uretheral ([place]) Strong Exam: General: Alert, Awake, No acute Distress, obese Eyes/N/T: EOMI, Head/Neck: neck supple, CV: RRR, No murmurs, Pulm: Clear b/l, no wheezing/rhonchi/rales Abd: soft, nontender, +BS x4 Ext: no clubbing/cyanosis. mild b/l edema R>L RLE erythema/edema/tenderness mildly improved Neuro: Alert, no focal deficits, moves all extremities, Skin: warm/dry OBJ DATA Labs CBC & Chem 7: 11/11/20 05:13 11/11/20 05:13 Labs: Abnormal Lab Results 11/11/20 11/10/20 11/10/20 05:13 05:27 05:27 WBC 12.6 H 15.7 H RBC 3.99 L 3.77 L Hgb 11.8 L 11.2 L Hct 37.3 L 35.1 L MCHC RDW 14.7 H MPV 10.6 H Neut % (Auto) Lymph % (Auto) Lymph # (Auto) Frontier # (Auto) Band Neutrophils % 16 H Lymphocytes % 10 L Absolute Neutrophils Nucleated RBCs 1 H WBC Morphology Toxic Granulation ESR VBG Lactic Acid Sodium Chloride Carbon Dioxide Anion Gap Glucose 119 H Calcium 8.3 L Phosphorus Total Bilirubin Direct Bilirubin 0.4 H GGT 72 H AST 43 H Alkaline Phosphatase 138 H Lactate Dehydrogenase 311 H C-Reactive Protein 27.40 H Albumin 2.2 L Globulin 4.7 H Albumin/Globulin Ratio 0.5 L 11/09/20 11/09/20 11/08/20 08:02 08:02 23:05 WBC 18.8 H RBC 3.92 L Hgb 11.6 L Hct 36.0 L MCHC RDW MPV Neut % (Auto) Lymph % (Auto) Lymph # (Auto) Frontier # (Auto) Band Neutrophils % 30 H Lymphocytes % 6 L Absolute Neutrophils Nucleated RBCs WBC Morphology Abnormal A Toxic Granulation Few A ESR VBG Lactic Acid 5.6 H* Sodium 132 L Chloride Carbon Dioxide Anion Gap Glucose 115 H Calcium 8.3 L Phosphorus 2.1 L Total Bilirubin Direct Bilirubin 0.5 H GGT 75 H AST 55 H Alkaline Phosphatase 131 H Lactate Dehydrogenase 288 H C-Reactive Protein 32.10 H Albumin 3.1 L Globulin 4.0 H Albumin/Globulin Ratio 0.8 L 11/08/20 11/08/20 11/08/20 22:45 22:45 22:45 WBC RBC Hgb Hct MCHC RDW MPV Neut % (Auto) Lymph % (Auto) Lymph # (Auto) Frontier # (Auto) Band Neutrophils % Lymphocytes % Absolute Neutrophils Nucleated RBCs WBC Morphology Toxic Granulation ESR 95 H VBG Lactic Acid Sodium 130 L Chloride 90 L Carbon Dioxide 17 L Anion Gap 23.0 H Glucose Calcium Phosphorus Total Bilirubin 1.3 H Direct Bilirubin GGT AST 68 H Alkaline Phosphatase Lactate Dehydrogenase C-Reactive Protein 32.00 H Albumin 2.7 L Globulin 5.1 H Albumin/Globulin Ratio 0.5 L 11/08/20 22:45 WBC 20.1 H RBC 4.12 L Hgb 12.1 L Hct 39.1 L MCHC 30.9 L RDW MPV 11.0 H Neut % (Auto) 84.9 H Lymph % (Auto) 6.7 L Lymph # (Auto) 1.35 L Frontier # (Auto) 1.56 H Band Neutrophils % Lymphocytes % Absolute Neutrophils 17.04 H Nucleated RBCs WBC Morphology Toxic Granulation ESR VBG Lactic Acid Sodium Chloride Carbon Dioxide Anion Gap Glucose Calcium Phosphorus Total Bilirubin Direct Bilirubin GGT AST Alkaline Phosphatase Lactate Dehydrogenase C-Reactive Protein Albumin Globulin Albumin/Globulin Ratio Meds: Medications Acetaminophen (Acetaminophen 325 Mg Tablet) 650 mg PO Q6HP PRN; Protocol PRN Reason: Per Pain Protocol/Fever > 101 Last Admin: 11/10/20 15:20 Dose: 650 mg Documented by: Hydrocodone Bitart/Acetaminophen (Hydrocodone/Apap 10/325mg Tablet) 1 tab PO Q4HP PRN; Protocol PRN Reason: pain Last Admin: 11/11/20 06:18 Dose: 1 tab Documented by: Calcium Carbonate/Glycine (Calcium Carbonate 500 Mg Tab.Chew) 500 mg CHEWED Q4HP PRN PRN Reason: Dyspepsia Last Admin: 11/10/20 19:39 Dose: 500 mg Documented by: Diphenhydramine HCl (Diphenhydramine 25 Mg Capsule) 25 mg PO HSP PRN PRN Reason: Insomnia Last Admin: 11/10/20 20:03 Dose: 25 mg Documented by: Docusate Sodium (Docusate Sodium 100 Mg Capsule) 100 mg PO BID [facility] Last Admin: 11/10/20 20:03 Dose: Not Given Documented by: Enoxaparin Sodium (Enoxaparin 60 Mg/0.6 Ml Syringe) 60 mg SQ BID [facility] Last Admin: 11/10/20 20:03 Dose: 60 mg Documented by: Hydralazine HCl (Hydralazine 20 Mg/Ml Vial) 0 mg IV Q2HP PRN PRN Reason: Hypertension Last Admin: 11/11/20 04:00 Dose: 10 mg Documented by: Ceftriaxone Sodium 2 gm/ (Dextrose) 50 mls @ 100 mls/hr IV Q24H [facility]; Protocol Last Infusion: 11/10/20 08:37 Dose: Infused Documented by: Vancomycin HCl 1,500 mg/ (Sodium Chloride) 500 mls @ 333.3 mls/hr IV Q12H [facility] Last Infusion: 11/10/20 21:55 Dose: Infused Documented by: Potassium Chloride 40 meq/ (Dextrose) 520 mls @ 130 mls/hr IV UD PRN PRN Reason: Potassium < 3 Magnesium Sulfate (Magnesium Sulfate) 2 gm in 50 mls @ 50 mls/hr IV UD PRN PRN Reason: Magnesium </= 1.6 Lactulose (Lactulose 20 Gm/30 Ml Oral.Sheri) 10 gm PO DAILYP PRN PRN Reason: Constipation Melatonin (Melatonin 3 Mg Tablet) 3 mg PO HSP PRN PRN Reason: Insomnia Last Admin: 11/10/20 20:03 Dose: 3 mg Documented by: Metoclopramide HCl (Metoclopramide 10 Mg/2 Ml Vial) 10 mg IV Q6HP PRN PRN Reason: Nausea And Vomiting Last Admin: 11/10/20 19:40 Dose: 10 mg Documented by: Morphine Sulfate (Morphine 2 Mg/Ml Vial) 1 - 4 mg IV Q3H PRN PRN Reason: pain Last Admin: 11/10/20 20:21 Dose: 4 mg Documented by: Ondansetron HCl (Ondansetron 4 Mg/2 Ml Vial) 4 mg IV Q4HP PRN; Protocol PRN Reason: Nausea And Vomiting Last Admin: 11/10/20 16:39 Dose: 4 mg Documented by: Polyethylene Glycol (Polyethylene Glycol 3350 17 Gm Packet) 17 gm PO DAILYP PRN PRN Reason: Constipation Potassium Chloride (Potassium Chloride 20 Meq Tablet) 40 meq PO UD PRN PRN Reason: Potssium is 3-3.5 Potassium Chloride (Potassium Chloride 20 Meq Tablet) 40 meq PO UD PRN PRN Reason: Potassium < 3 Senna (Sennosides 1 Tablet) 2 tab PO DAILYP PRN PRN Reason: Constipation Sodium Chloride (0.9 % Sodium Chloride 10 Ml Syringe) 10 ml IV Q8 [facility] Last Admin: 11/11/20 04:07 Dose: 10 ml Documented by: Vancomycin HCl (Vancomycin Per Pharmacy) 1 order IV UD [facility]; Protocol Verapamil HCl (Verapamil 180 Mg Tab.Xl.24h) 360 mg PO QDAY [facility] Last Admin: 11/10/20 10:49 Dose: 360 mg Documented by: A/P Narrative A/P Narrative: A: *RLE cellulitis: -CT no abscess/fasciitis *Bacteremia(GPC 1/4): contaminant vs 2/2 above *sepsis w/lactic acidosis(resolved): -afebrile o/n, leukocytosis w/bandemia improving *met acidosis: resolved *Hyponatremia: resolved *HTN: *Chronic pain: *Obesity: * P: -Vanc(d/c soon pending BC)/cefepime, clinda x48hrs, pending BC, mrsa screen neg -prn lasix -cont home verapamil -elevate leg -wound care -ppx: lovenox Time Spent With Patient Time: Total time spent is greater than 50% in coordination of care (as documented) at patient's floor/unit and/or counseling patient:
[2020-11-11 08:02] LABS: Anisocytosis RARE (None Seen); Band Neutrophils % 8 % (0-10); Lymphocytes % 18 % (15-49); Metamyelocytes % 3 %; Monocytes % (Manual) 8 % (1-12); Myelocytes % 2 %; Nucleated Red Blood Cells 1 % (0-0); Platelet Estimate NORMAL (Normal); RBC Morphology ABNORMAL (Normal); Segmented Neutrophils % 61 % (38-78)
[2020-11-11] MEDS ORDERED: FUROSEMIDE 40 MG/4 ML VIAL IV ONE (08:07)
[2020-11-11] MEDS ORDERED: ALBUMIN HUMAN 12.5 GM/50 ML BAG IV ONE (08:07)
[2020-11-11] MEDS: cefTRIAXone 2 GM in DEXTROSE 5% IN WATER 50 ML IV SCH (08:17)
[2020-11-11] MEDS: CALCIUM CARBONATE 500 MG TAB.CHEW CHEWED PRN (08:25)
[2020-11-11] MEDS: VERAPAMIL 180 MG TAB.XL.24H PO SCH (09:29)
[2020-11-11] MEDS: DOCUSATE SODIUM 100 MG CAPSULE PO SCH ×2 (09:31→20:07)
[2020-11-11] MEDS: ENOXAPARIN 60 MG/0.6 ML SYRINGE SQ SCH ×2 (09:31→20:51)
[2020-11-11] MEDS: VANCOMYCIN 1,500 MG in 0.9 % SODIUM CHLORIDE 500 ML IV SCH (10:14)
[2020-11-11] MEDS ORDERED: VANCOMYCIN 500 MG in 0.9 % SODIUM CHLORIDE 100 ML IV ONE (12:00)
--- NOTE | 2020-11-11 12:14 | General Surgery Progress Note ---
SUBJECTIVE Subjective Patient information: Note initiated : 11/11/20 at 12:07 pm Service Date, if different from initiated Date: [] Patient: Jamie Parker 45 y/o M admitted on 11/09/20 for rt leg edema. Chief Complaint: [] Additional PMFSH (Level 3 Only): I saw this patient along with Rafael Bustamante RN, Inpatient wound care nurse. Patient had an uneventful night. Reports starting to feel better. Constitutional Vitals: Vital Signs Temp Pulse Resp BP Pulse Ox 98.5 F 74 22 135/80 94 11/11/20 08:00 11/11/20 08:00 11/11/20 08:00 11/11/20 08:00 11/11/20 08:00 Period Temp Pulse Resp BP Sys/Paulino Pulse Ox Last 24 Hr 97.7 F-99.1 F 68-76 14-22 126-155/69-82 90-95 Intake and Output 11/10/20 11/11/20 11/11/20 21:59 05:59 13:59 Intake Total 2104 234 954 Output Total 1900 1175 1500 Balance 204 -941 -546 Weight 432 lb 4.8 oz Intake & Output: Intake & Output 11/10/20 11/11/20 11/11/20 21:59 05:59 13:59 Intake Total 2104 234 954 Output Total 1900 1175 1500 Balance 204 -941 -546 Weight 432 lb 4.8 oz Intake: IV 604 54 154 Cleocin 600 mg In Dextrose 5% 54 54 54 in Water 50 ml @ 100 mls/hr IV Q8H [facility] Rx#:[id number] Vancomycin 1,500 mg In Sodium 500 Chloride 0.9% 500 ml @ 333.3 mls/hr IV Q12H [facility] Rx#: [id number] Rocephin 2 gm In Dextrose 5% in 50 Water 50 ml @ 100 mls/hr IV Q24H [facility] Rx#:[id number] Oral 1500 180 800 Output: Urine Catheter Amount 1175 1500 Void Amount 1900 Other: Meal Breakfast Percent of Meal Consumed 15 Urine Appearance Clear Clear Clear Uretheral ([place]) Clear Clear Urine Color Pale Dark Yellow Bright Yellow Uretheral ([place]) Dark Yellow Dark Yellow Urine Odor Uretheral ([place]) Strong Stool Size Moderate Stool Color Brown Stool Consistency Soft Loose # Bowel Movements 1 General appearance: cooperative, no acute distress and obese Exam: AVSS. Able to stand and bear weight on RIGHT leg. Ambulated with walker. No interval changes in DAVID. RIGHT lower extremity: Resolving inflammatory changes. LESS erythema and receding cellulitic changes. Blister sites are dry and without any drainage / odor. LABS: Electrolyte imbalance corrected. Na / K / BUN/Cr are normal CRP is trending down. WBC trending down. Blood c/s GPC Likely contaminant Wound c/s: No bacterial growth MRSA screen was Negative. A/P Narrative A/P Narrative: Assessment: Satisfactory progress / Responding to local wound cre and IV antibiotics. Plan: Continue present treatment. If discharged f/u at wound care clinic in ONE week. Time Spent With Patient Time: Total time spent is greater than 50% in coordination of care (as docum ented) at patient's floor/unit and/or counseling patient: Total time spent with greater than 50% in coordination of care (as documented) at patient's floor/unit and/or counseling patient:: 25 - 35 minutes
[2020-11-11] MEDS: ONDANSETRON 4 MG/2 ML VIAL IV PRN (14:05)
[2020-11-11] MEDS: METOCLOPRAMIDE 10 MG/2 ML VIAL IV PRN (14:30)
[2020-11-11] MEDS ORDERED: PROMETHAZINE 25 MG/ML VIAL IV PRN (15:38)
--- NOTE | 2020-11-11 17:54 | XRay Report ---
HISTORY: Nausea and vomiting FINDINGS: Moderate amount of gas is present in the stomach, ascending and transverse colon. There is also gas in multiple loops of nondilated small intestine in the mid abdomen and pelvis. The lung bases are clear. No soft tissue mass is identified. There are no abnormal soft tissue calcifications. IMPRESSION: Moderate amount of gas throughout the bowel but without evidence of obstruction on this supine study Interpreted and Authenticated by: Shon Desai 11/11/20
[2020-11-11] MEDS: PANTOPRAZOLE 40 MG TABLET PO SCH (17:56)
[2020-11-11] MEDS: VANCOMYCIN 2,000 MG in 0.9 % SODIUM CHLORIDE 500 ML IV SCH (20:51)
[2020-11-12] MEDS: CALCIUM CARBONATE 500 MG TAB.CHEW CHEWED PRN ×2 (00:36→06:53)
[2020-11-12] MEDS: HYDROcodone/APAP 10/325MG TABLET PO PRN ×4 (01:41→20:37)
[2020-11-12] MEDS: hydrALAZINE 20 MG/ML VIAL IV PRN ×2 (04:13→06:59)
[2020-11-12] MEDS: 0.9 % SODIUM CHLORIDE 10 ML SYRINGE IV SCH ×3 (04:15→20:32)
[2020-11-12 07:12] LABS: ALT/SGPT 19 U/L (<40); AST/SGOT 36 U/L (<40); Albumin 2.4 gm/dL (3.2-5.2); Albumin/Globulin Ratio 0.5 (1.0-2.3); Alkaline Phosphatase 80 U/L (39-117); Bilirubin,Total 0.6 mg/dL (0.1-1.0); Blood Urea Nitrogen 10 mg/dL (6-20); Calcium 8.9 mg/dL (8.6-10.4); Carbon Dioxide 24 mmol/L (22-30); Chloride 98 mmol/L (96-108); Globulin 5.3 gm/dL (2.2-3.7); Glomerular Filtration Rate 114; Glucose 93 mg/dL (70-105)
[2020-11-12 07:19] LABS: Basophils # (Auto) 0.15 K/mcL (0.00-0.20); Basophils % (Auto) 0.9 % (0.0-2.0); Eosinophils # (Auto) 0.15 K/mcL (0.00-0.70); Eosinophils % (Auto) 0.9 % (0.0-7.0); Hematocrit 35.4 % (41.0-55.0); Hemoglobin 10.9 g/dL (13.5-16.5); Lymphocytes # (Auto) 3.08 K/mcL (1.50-4.80); Lymphocytes % (Auto) 17.5 % (15.0-49.0); Mean Cell Volume 93.7 fL (80.0-100.0); Mean Corpuscular HGB Conc 30.8 g/dL (31.0-36.0); Mean Platelet Volume 9.9 fL (7.4-10.4); Monocytes # (Auto) 0.78 K/mcL (0.10-0.90); Monocytes % (Auto) 4.4 % (1.0-12.0); Neutrophils % (Auto) 76.3 % (38.0-78.0); Platelet Count 284 K/mcL (140-440); RBC 3.78 M/mcL (4.50-5.90); Red Cell Distribution Width 14.7 % (11.5-14.5); WBC 17.6 K/mcL (4.5-11.0)
[2020-11-12] MEDS: cefTRIAXone 2 GM in DEXTROSE 5% IN WATER 50 ML IV SCH (07:54)
[2020-11-12] MEDS: VERAPAMIL 180 MG TAB.XL.24H PO SCH (08:13)
[2020-11-12] MEDS: ENOXAPARIN 60 MG/0.6 ML SYRINGE SQ SCH ×2 (08:14→20:32)
[2020-11-12] MEDS: DOCUSATE SODIUM 100 MG CAPSULE PO SCH ×2 (08:14→20:32)
[2020-11-12] MEDS: PANTOPRAZOLE 40 MG TABLET PO SCH (08:19)
--- NOTE | 2020-11-12 08:51 | Internal Med Progress Note ---
SUBJECTIVE Subjective Patient information: Note initiated : 11/12/20 at 8:50 am Service Date, if different from initiated Date: [] Patient: Jamie Pakrer 45 y/o M admitted on 11/09/20 for rt leg edema. Chief Complaint: [right lower leg cellulitis.] 11/12/20: Afebrile overnight. Blood culture from 11/10/20 no grow to date. Patient is c/o mild to moderate right lower leg pain. Denies nausea or vomiting. Denies fever. Constitutional Vitals: Vital Signs Temp Pulse Resp BP Pulse Ox 36.8 C 84 20 176/90 94 11/12/20 08:00 11/12/20 08:00 11/12/20 08:00 11/12/20 08:00 11/12/20 03:58 Period Temp Pulse Resp BP Sys/Paulino Pulse Ox Last 24 Hr 36.8 C-37.4 C 73-85 12-22 129-176/75-95 93-95 Intake and Output 11/11/20 11/12/20 11/12/20 21:59 05:59 13:59 Intake Total 350 1250 50 Output Total 1300 1350 Balance -950 -100 50 Weight 196.009 kg Intake & Output: Intake & Output 11/11/20 11/12/20 11/12/20 21:59 05:59 13:59 Intake Total 350 1250 50 Output Total 1300 1350 Balance -950 -100 50 Weight 196.009 kg Intake: IV 500 50 Vancomycin 2,000 mg In Sodium 500 Chloride 0.9% 500 ml @ 250 mls/ hr IV Q12H [facility] Rx#:[id number] Rocephin 2 gm In Dextrose 5% in 50 Water 50 ml @ 100 mls/hr IV Q24H [facility] Rx#:[id number] Oral 350 750 Output: Urine Catheter Amount 800 1300 Emesis 500 50 Other: Urine Appearance Clear Uretheral ([place]) Clear Urine Color Dark Yellow Dark Yellow Light Teresa Uretheral ([place]) Straw Urine Odor Strong Uretheral ([place]) Strong Stool Size Large Large Stool Color Brown Brown Stool Consistency Liquid Liquid Watery Loose Loose # Unmeasured Emesis 1 # Bowel Movements 1 # of times incontinent of 1 Bowels General appearance: cooperative and no acute distress Head Head exam: Present atraumatic and normocephalic Eye Eye exam: Present EOMI and PERRL ENT ENT exam: Present mucous membranes moist, normal exam and normal external ear exam Neck Neck exam: Present normal inspection; Absent lymphadenopathy, tenderness and thyromegaly Respiratory Respiratory exam: Absent accessory muscle use, respiratory distress and wheezes Cardiovascular Cardiovascular exam: Present normal rate and rhythm; Absent JVD GI/Abdominal GI/Abdominal exam: Present normal bowel sounds and soft; Absent organomegaly and tenderness Rectal Rectal exam: Present deferred Extremities Exam Extremities exam: Present full ROM, normal capillary refill and normal inspection; Absent tenderness Neurological Exam Neurological exam: Present alert, CN II-XII intact and oriented X3; Absent motor sensory deficit Psychiatric Psychiatric exam: Present normal affect and normal mood; Absent anxious and depressed Skin Skin exam: Present dry, erythema, petechiae and rash; Absent intact Additional comments: of the right lower leg OBJ DATA Labs CBC & Chem 7: 11/12/20 05:47 11/12/20 05:47 Labs: Abnormal Lab Results 11/12/20 11/12/20 11/12/20 05:47 05:47 05:47 WBC 17.6 H RBC 3.78 L Hgb 10.9 L Hct 35.4 L MCHC 30.8 L RDW 14.7 H MPV Band Neutrophils % Lymphocytes % Absolute Neutrophils 13.45 H Nucleated RBCs WBC Morphology Toxic Granulation RBC Morphology Anisocytosis ESR Sodium Glucose Calcium Phosphorus Direct Bilirubin GGT AST Alkaline Phosphatase Lactate Dehydrogenase C-Reactive Protein 13.10 H Albumin 2.4 L Globulin 5.3 H Albumin/Globulin Ratio 0.5 L 11/12/20 11/11/20 11/10/20 05:47 05:13 05:27 WBC 12.6 H RBC 3.99 L Hgb 11.8 L Hct 37.3 L MCHC RDW 14.7 H MPV Band Neutrophils % Lymphocytes % Absolute Neutrophils Nucleated RBCs 1 H WBC Morphology Toxic Granulation RBC Morphology Abnormal A Anisocytosis Rare A ESR 119 H Sodium Glucose 119 H Calcium 8.3 L Phosphorus Direct Bilirubin 0.4 H GGT 72 H AST 43 H Alkaline Phosphatase 138 H Lactate Dehydrogenase 311 H C-Reactive Protein 27.40 H Albumin 2.2 L Globulin 4.7 H Albumin/Globulin Ratio 0.5 L 11/10/20 11/09/20 11/09/20 05:27 08:02 08:02 WBC 15.7 H 18.8 H RBC 3.77 L 3.92 L Hgb 11.2 L 11.6 L Hct 35.1 L 36.0 L MCHC RDW MPV 10.6 H Band Neutrophils % 16 H 30 H Lymphocytes % 10 L 6 L Absolute Neutrophils Nucleated RBCs 1 H WBC Morphology Abnormal A Toxic Granulation Few A RBC Morphology Anisocytosis ESR Sodium 132 L Glucose 115 H Calcium 8.3 L Phosphorus 2.1 L Direct Bilirubin 0.5 H GGT 75 H AST 55 H Alkaline Phosphatase 131 H Lactate Dehydrogenase 288 H C-Reactive Protein 32.10 H Albumin 3.1 L Globulin 4.0 H Albumin/Globulin Ratio 0.8 L Meds: Medications Acetaminophen (Acetaminophen 325 Mg Tablet) 650 mg PO Q6HP PRN; Protocol PRN Reason: Per Pain Protocol/Fever > 101 Last Admin: 11/10/20 15:20 Dose: 650 mg Documented by: Hydrocodone Bitart/Acetaminophen (Hydrocodone/Apap 10/325mg Tablet) 1 tab PO Q4HP PRN; Protocol PRN Reason: pain Last Admin: 11/12/20 01:41 Dose: 1 tab Documented by: Calcium Carbonate/Glycine (Calcium Carbonate 500 Mg Tab.Chew) 500 mg CHEWED Q4HP PRN PRN Reason: Dyspepsia Last Admin: 11/12/20 06:53 Dose: 500 mg Documented by: Diphenhydramine HCl (Diphenhydramine 25 Mg Capsule) 25 mg PO HSP PRN PRN Reason: Insomnia Last Admin: 11/10/20 20:03 Dose: 25 mg Documented by: Docusate Sodium (Docusate Sodium 100 Mg Capsule) 100 mg PO BID [facility] Last Admin: 11/12/20 08:14 Dose: 100 mg Documented by: Enoxaparin Sodium (Enoxaparin 60 Mg/0.6 Ml Syringe) 60 mg SQ BID [facility] Last Admin: 11/12/20 08:14 Dose: 60 mg Documented by: Hydralazine HCl (Hydralazine 20 Mg/Ml Vial) 0 mg IV Q2HP PRN PRN Reason: Hypertension Last Admin: 11/12/20 06:59 Dose: 20 mg Documented by: Ceftriaxone Sodium 2 gm/ (Dextrose) 50 mls @ 100 mls/hr IV Q24H [facility]; Protocol Last Infusion: 11/12/20 08:38 Dose: Infused Documented by: Potassium Chloride 40 meq/ (Dextrose) 520 mls @ 130 mls/hr IV UD PRN PRN Reason: Potassium < 3 Magnesium Sulfate (Magnesium Sulfate) 2 gm in 50 mls @ 50 mls/hr IV UD PRN PRN Reason: Magnesium </= 1.6 Vancomycin HCl 2,000 mg/ (Sodium Chloride) 500 mls @ 250 mls/hr IV Q12H [facility] Last Infusion: 11/11/20 22:55 Dose: Infused Documented by: Lactulose (Lactulose 20 Gm/30 Ml Oral.Sheri) 10 gm PO DAILYP PRN PRN Reason: Constipation Melatonin (Melatonin 3 Mg Tablet) 3 mg PO HSP PRN PRN Reason: Insomnia Last Admin: 11/10/20 20:03 Dose: 3 mg Documented by: Metoclopramide HCl (Metoclopramide 10 Mg/2 Ml Vial) 10 mg IV Q6HP PRN PRN Reason: Nausea And Vomiting Last Admin: 11/11/20 14:30 Dose: 10 mg Documented by: Morphine Sulfate (Morphine 2 Mg/Ml Vial) 1 - 4 mg IV Q3H PRN PRN Reason: pain Last Admin: 11/10/20 20:21 Dose: 4 mg Documented by: Ondansetron HCl (Ondansetron 4 Mg/2 Ml Vial) 4 mg IV Q4HP PRN; Protocol PRN Reason: Nausea And Vomiting Last Admin: 11/11/20 14:05 Dose: 4 mg Documented by: Pantoprazole Sodium (Pantoprazole 40 Mg Tablet) 40 mg PO DAILY [facility] Last Admin: 11/12/20 08:19 Dose: 40 mg Documented by: Polyethylene Glycol (Polyethylene Glycol 3350 17 Gm Packet) 17 gm PO DAILYP PRN PRN Reason: Constipation Potassium Chloride (Potassium Chloride 20 Meq Tablet) 40 meq PO UD PRN PRN Reason: Potssium is 3-3.5 Potassium Chloride (Potassium Chloride 20 Meq Tablet) 40 meq PO UD PRN PRN Reason: Potassium < 3 Promethazine HCl (Promethazine 25 Mg/Ml Vial) 25 mg IV Q4-6HP PRN PRN Reason: Nausea And Vomiting Last Admin: 11/11/20 16:15 Dose: 25 mg Documented by: Senna (Sennosides 1 Tablet) 2 tab PO DAILYP PRN PRN Reason: Constipation Sodium Chloride (0.9 % Sodium Chloride 10 Ml Syringe) 10 ml IV Q8 [facility] Last Admin: 11/12/20 04:15 Dose: 10 ml Documented by: Vancomycin HCl (Vancomycin Per Pharmacy) 1 order IV UD [facility]; Protocol Verapamil HCl (Verapamil 180 Mg Tab.Xl.24h) 360 mg PO QDAY [facility] Last Admin: 11/12/20 08:13 Dose: 360 mg Documented by: A/P Assessment and plan (1) Gram-positive bacteremia: Status: Acute (2) Cellulitis of right lower extremity: Status: Acute (3) Hypertension: Status: Acute Qualifiers: Hypertension type: essential hypertension Qualified Code(s): I10 - Essential (primary) hypertension Narrative A/P Narrative: Assessment and Plans: 1. Right lower leg cellulitis: Wound culture from 11/09/20 grew S aureus and group A strep Consult Dr. Davila, recs. appreciated. Continue wound care as per wound care team. Vancomycin d/c Rocephin Continue pain management Tylenol PRN fever cbc w/ auto diff in the morning to trend WBC Physical therapy Occupational therapy 2. Bacteremia: Blood culture from 11/08/20 grew Coagulase negative staph Repeat blood culture from 11/10/20 no grow to date 2D echocardiogram to rule out endocarditis Vancomycin Tylenol PRN fever cbc w/ auto diff in the morning to trend WBC 3. Essential HTN: Currently elevated blood pressure Lisinopril 10mg PO daily Hydralazine 10mg IV q4-6hr PRN SBP>=180mmHg and/or DBP>=110mmHg GI ppx: PO Protonix DVT ppx: Lovenox Code status: Full Prognosis: Guarded Disposition: inpatient med surg; PT OT to recs. Time Spent With Patient Time: Total time spent is greater than 50% in coordination of care (as documented) at patient's floor/unit and/or counseling patient: Total time spent with greater than 50% in coordination of care (as documented) at patient's floor/unit and/or counseling patient:: 15 - 24 minutes
[2020-11-12] MEDS ORDERED: hydrALAZINE 20 MG/ML VIAL IV PRN (08:58)
[2020-11-12] MEDS ORDERED: PANTOPRAZOLE 40 MG TABLET PO SCH (09:00)
[2020-11-12] MEDS: VANCOMYCIN 2,000 MG in 0.9 % SODIUM CHLORIDE 500 ML IV SCH (10:00)
[2020-11-12] MEDS: LISINOPRIL 10 MG TABLET PO SCH (10:05)
[2020-11-12] MEDS: VANCOMYCIN 1,500 MG in 0.9 % SODIUM CHLORIDE 500 ML IV SCH (17:28)
[2020-11-13] MEDS: VANCOMYCIN 1,500 MG in 0.9 % SODIUM CHLORIDE 500 ML IV SCH ×2 (00:52→10:28)
[2020-11-13] MEDS: HYDROcodone/APAP 10/325MG TABLET PO PRN ×4 (04:38→21:11)
[2020-11-13] MEDS: 0.9 % SODIUM CHLORIDE 10 ML SYRINGE IV SCH ×3 (05:42→21:11)
[2020-11-13 07:26] LABS: Basophils # (Auto) 0.11 K/mcL (0.00-0.20); Basophils % (Auto) 0.8 % (0.0-2.0); Eosinophils # (Auto) 0.28 K/mcL (0.00-0.70); Hematocrit 36.7 % (41.0-55.0); Hemoglobin 11.3 g/dL (13.5-16.5); Lymphocytes # (Auto) 2.48 K/mcL (1.50-4.80); Lymphocytes % (Auto) 17.5 % (15.0-49.0); Mean Cell Volume 94.8 fL (80.0-100.0); Mean Corpuscular HGB Conc 30.8 g/dL (31.0-36.0); Monocytes # (Auto) 0.56 K/mcL (0.10-0.90); Monocytes % (Auto) 3.9 % (1.0-12.0); Neutrophils % (Auto) 75.8 % (38.0-78.0); Platelet Count 288 K/mcL (140-440); RBC 3.87 M/mcL (4.50-5.90)
[2020-11-13 07:54] LABS: ALT/SGPT 20 U/L (<40); AST/SGOT 35 U/L (<40); Albumin 2.5 gm/dL (3.2-5.2); Albumin/Globulin Ratio 0.5 (1.0-2.3); Alkaline Phosphatase 79 U/L (39-117); Bilirubin,Total 0.5 mg/dL (0.1-1.0); Blood Urea Nitrogen 7 mg/dL (6-20); Calcium 8.7 mg/dL (8.6-10.4); Carbon Dioxide 27 mmol/L (22-30); Chloride 101 mmol/L (96-108); Globulin 5.1 gm/dL (2.2-3.7); Glomerular Filtration Rate 108; Glucose 81 mg/dL (70-105)
[2020-11-13] MEDS ORDERED: SCOPOLAMINE 1 PATCH PATCH TOPICAL PRN (08:04)
[2020-11-13] MEDS ORDERED: IPRATROPIUM/ALBUTEROL 3 ML AMPUL.NEB NEB PRN (08:04)
[2020-11-13 08:27] LABS: WBC 14.2 K/mcL (4.5-11.0)
--- NOTE | 2020-11-13 08:39 | General Surgery Progress Note ---
SUBJECTIVE Subjective Patient information: Note initiated : 11/13/20 at 8:37 am Service Date, if different from initiated Date: [] Patient: Jamie Parker 45 y/o M admitted on 11/09/20 for rt leg edema. Chief Complaint: [] Additional PMFSH (Level 3 Only): Patient had an uneventful night. RIGHT LE CSSSI improving. Will need debridement at this stage. Constitutional Vitals: Vital Signs Temp Pulse Resp BP Pulse Ox 97.9 F 74 18 164/96 95 11/13/20 06:56 11/13/20 06:56 11/13/20 06:56 11/13/20 06:56 11/13/20 06:56 Period Temp Pulse Resp BP Sys/Paulino Pulse Ox Last 24 Hr 97.5 F-98.4 F 72-79 16-20 134-181/75-96 92-95 Intake and Output 11/12/20 11/13/20 11/13/20 21:59 05:59 13:59 Intake Total 1070 1300 Output Total 850 1100 Balance 220 200 Weight 430 lb 3.2 oz Intake & Output: Intake & Output 11/12/20 11/13/20 11/13/20 21:59 05:59 13:59 Intake Total 1070 1300 Output Total 850 1100 Balance 220 200 Weight 430 lb 3.2 oz Intake: IV 500 500 Vancomycin 1,500 mg In Sodium 500 500 Chloride 0.9% 500 ml @ 333.3 mls/hr IV Q8H [facility] Rx#:[id number] Oral 570 800 Output: Urine Catheter Amount 850 1100 Other: Meal Lunch Percent of Meal Consumed 50% Feeding Ability Independent Urine Appearance Cloudy Clear Sediment Uretheral ([place]) Clear Clear Urine Color Tea Colored Dark Yellow Uretheral ([place]) Dark Yellow Straw # Bowel Movements 0 General appearance: cooperative, morbidly obese and no acute distress Exam: AVSS: No changes DAVID. Dressings RIGHT foot, leg and thigh are intact. Reviewed labs from 11/12/2020 Spoke with patient and Bella WOODS I/C Regarding Cleaning and Debridement of wounds at this stage. Would do this in OR with help from anesthesia. D/W Dr. Marie, Anesthesiologist A/P Narrative A/P Narrative: Assessment: Sepsis, CSSSI Right LE . Improving. Needs OR / surgical debridement. Plan: Await anesthesia evaluation , NPO at this time. Time Spent With Patient Time: Total time spent is greater than 50% in coordination of care (as documented) at patient's floor/unit and/or counseling patient: Total time spent with greater than 50% in coordination of care (as documented) at patient's floor/unit and/or counseling patient:: 15 - 24 minutes
[2020-11-13] MEDS ORDERED: BENZOCAINE/MENTHOL 1 LOZENGE PO PRN (08:42)
--- NOTE | 2020-11-13 08:45 | Internal Med Progress Note ---
SUBJECTIVE Subjective Patient information: Note initiated : 11/13/20 at 8:36 am Service Date, if different from initiated Date: [] Patient: Jamie Parker 45 y/o M admitted on 11/09/20 for rt leg edema. Chief Complaint: [Right leg cellulitis] 11/12/20: Afebrile overnight. Blood culture from 11/10/20 no grow to date. Patient is c/o mild to moderate right lower leg pain. Denies nausea or vomiting. Denies fever. 11/13/20: Afebile overnight. Blood culture from 11/10/20 no grow to date. Patient is c/o mild right lower leg pain. Denies nausea or vomiting. Denies fever. WBC down-trended from 17.6 to 14.2. Constitutional Vitals: Vital Signs Temp Pulse Resp BP Pulse Ox 36.6 C 74 18 164/96 95 11/13/20 06:56 11/13/20 06:56 11/13/20 06:56 11/13/20 06:56 11/13/20 06:56 Period Temp Pulse Resp BP Sys/Paulino Pulse Ox Last 24 Hr 36.4 C-36.9 C 72-79 16-20 134-181/75-96 92-95 Intake and Output 11/12/20 11/13/20 11/13/20 21:59 05:59 13:59 Intake Total 1070 1300 Output Total 850 1100 Balance 220 200 Weight 195.135 kg Intake & Output: Intake & Output 11/12/20 11/13/20 11/13/20 21:59 05:59 13:59 Intake Total 1070 1300 Output Total 850 1100 Balance 220 200 Weight 195.135 kg Intake: IV 500 500 Vancomycin 1,500 mg In Sodium 500 500 Chloride 0.9% 500 ml @ 333.3 mls/hr IV Q8H [facility] Rx#:[id number] Oral 570 800 Output: Urine Catheter Amount 850 1100 Other: Meal Lunch Percent of Meal Consumed 50% Feeding Ability Independent Urine Appearance Cloudy Clear Sediment Uretheral ([place]) Clear Clear Urine Color Tea Colored Dark Yellow Uretheral ([place]) Dark Yellow Straw # Bowel Movements 0 General appearance: cooperative and no acute distress Head Head exam: Present atraumatic and normocephalic Eye Eye exam: Present EOMI and PERRL ENT ENT exam: Present mucous membranes moist, normal exam and normal external ear exam Neck Neck exam: Present normal inspection; Absent lymphadenopathy, tenderness and thyromegaly Respiratory Respiratory exam: Absent accessory muscle use, respiratory distress and wheezes Cardiovascular Cardiovascular exam: Present normal rate and rhythm; Absent JVD GI/Abdominal GI/Abdominal exam: Present normal bowel sounds and soft; Absent organomegaly and tenderness Rectal Rectal exam: Present deferred Additional comments: [place] catheter in place Extremities Exam Extremities exam: Present full ROM, normal capillary refill and normal inspection; Absent tenderness Neurological Exam Neurological exam: Present alert, CN II-XII intact and oriented X3; Absent motor sensory deficit Psychiatric Psychiatric exam: Present normal affect and normal mood; Absent anxious and depressed Skin Skin exam: Present dry; Absent intact Additional comments: erythematic rash with blisters with tenderness to palpation and warmth to touch in the right lower leg. OBJ DATA Labs CBC & Chem 7: 11/13/20 05:15 11/13/20 05:15 Labs: Abnormal Lab Results 11/13/20 11/13/20 11/12/20 05:15 05:15 05:47 WBC 14.2 H RBC 3.87 L Hgb 11.3 L Hct 36.7 L MCHC 30.8 L RDW 15.0 H Absolute Neutrophils 10.77 H Nucleated RBCs RBC Morphology Anisocytosis ESR C-Reactive Protein Albumin 2.5 L 2.4 L Globulin 5.1 H 5.3 H Albumin/Globulin Ratio 0.5 L 0.5 L 11/12/20 11/12/20 11/12/20 05:47 05:47 05:47 WBC 17.6 H RBC 3.78 L Hgb 10.9 L Hct 35.4 L MCHC 30.8 L RDW 14.7 H Absolute Neutrophils 13.45 H Nucleated RBCs RBC Morphology Anisocytosis ESR 119 H C-Reactive Protein 13.10 H Albumin Globulin Albumin/Globulin Ratio 11/11/20 05:13 WBC 12.6 H RBC 3.99 L Hgb 11.8 L Hct 37.3 L MCHC RDW 14.7 H Absolute Neutrophils Nucleated RBCs 1 H RBC Morphology Abnormal A Anisocytosis Rare A ESR C-Reactive Protein Albumin Globulin Albumin/Globulin Ratio Meds: Medications Acetaminophen (Acetaminophen 325 Mg Tablet) 650 mg PO Q6HP PRN; Protocol PRN Reason: Per Pain Protocol/Fever > 101 Last Admin: 11/10/20 15:20 Dose: 650 mg Documented by: Hydrocodone Bitart/Acetaminophen (Hydrocodone/Apap 10/325mg Tablet) 1 tab PO Q4HP PRN; Protocol PRN Reason: pain Last Admin: 11/13/20 04:38 Dose: 1 tab Documented by: Albuterol/Ipratropium (Ipratropium/Albuterol 3 Ml Ampul.Neb) 3 ml NEB ONCE PRN PRN Reason: Shortness Of Breath Stop: 11/13/20 10:06 Calcium Carbonate/Glycine (Calcium Carbonate 500 Mg Tab.Chew) 500 mg CHEWED Q4HP PRN PRN Reason: Dyspepsia Last Admin: 11/12/20 06:53 Dose: 500 mg Documented by: Diphenhydramine HCl (Diphenhydramine 25 Mg Capsule) 25 mg PO HSP PRN PRN Reason: Insomnia Last Admin: 11/10/20 20:03 Dose: 25 mg Documented by: Docusate Sodium (Docusate Sodium 100 Mg Capsule) 100 mg PO BID [facility] Last Admin: 11/12/20 20:32 Dose: 100 mg Documented by: Enoxaparin Sodium (Enoxaparin 60 Mg/0.6 Ml Syringe) 60 mg SQ BID [facility] Last Admin: 11/12/20 20:32 Dose: 60 mg Documented by: Hydralazine HCl (Hydralazine 20 Mg/Ml Vial) 10 mg IV Q4-6HP PRN PRN Reason: Hypertension Potassium Chloride 40 meq/ (Dextrose) 520 mls @ 130 mls/hr IV UD PRN PRN Reason: Potassium < 3 Magnesium Sulfate (Magnesium Sulfate) 2 gm in 50 mls @ 50 mls/hr IV UD PRN PRN Reason: Magnesium </= 1.6 Vancomycin HCl 1,500 mg/ (Sodium Chloride) 500 mls @ 333.3 mls/hr IV Q8H [facility] Last Infusion: 11/13/20 02:23 Dose: Infused Documented by: Lactulose (Lactulose 20 Gm/30 Ml Oral.Sheri) 10 gm PO DAILYP PRN PRN Reason: Constipation Lisinopril (Lisinopril 10 Mg Tablet) 10 mg PO DAILY [facility] Last Admin: 11/12/20 10:05 Dose: 10 mg Documented by: Melatonin (Melatonin 3 Mg Tablet) 3 mg PO HSP PRN PRN Reason: Insomnia Last Admin: 11/10/20 20:03 Dose: 3 mg Documented by: Metoclopramide HCl (Metoclopramide 10 Mg/2 Ml Vial) 10 mg IV Q6HP PRN PRN Reason: Nausea And Vomiting Last Admin: 11/11/20 14:30 Dose: 10 mg Documented by: Morphine Sulfate (Morphine 2 Mg/Ml Vial) 1 - 4 mg IV Q3H PRN PRN Reason: pain Last Admin: 11/10/20 20:21 Dose: 4 mg Documented by: Ondansetron HCl (Ondansetron 4 Mg/2 Ml Vial) 4 mg IV Q4HP PRN; Protocol PRN Reason: Nausea And Vomiting Last Admin: 11/11/20 14:05 Dose: 4 mg Documented by: Pantoprazole Sodium (Pantoprazole 40 Mg Tablet) 40 mg PO DAILY [facility] Last Admin: 11/12/20 08:19 Dose: 40 mg Documented by: Polyethylene Glycol (Polyethylene Glycol 3350 17 Gm Packet) 17 gm PO DAILYP PRN PRN Reason: Constipation Potassium Chloride (Potassium Chloride 20 Meq Tablet) 40 meq PO UD PRN PRN Reason: Potssium is 3-3.5 Potassium Chloride (Potassium Chloride 20 Meq Tablet) 40 meq PO UD PRN PRN Reason: Potassium < 3 Promethazine HCl (Promethazine 25 Mg/Ml Vial) 25 mg IV Q4-6HP PRN PRN Reason: Nausea And Vomiting Last Admin: 11/11/20 16:15 Dose: 25 mg Documented by: Scopolamine (Scopolamine 1 Patch Patch) 1 patch TOPICAL PREOP PRN PRN Reason: Nausea And Vomiting Senna (Sennosides 1 Tablet) 2 tab PO DAILYP PRN PRN Reason: Constipation Sodium Chloride (0.9 % Sodium Chloride 10 Ml Syringe) 10 ml IV Q8 [facility] Last Admin: 11/13/20 05:42 Dose: 10 ml Documented by: Vancomycin HCl (Vancomycin Per Pharmacy) 1 order IV UD [facility]; Protocol Verapamil HCl (Verapamil 180 Mg Tab.Xl.24h) 360 mg PO QDAY [facility] Last Admin: 11/12/20 08:13 Dose: 360 mg Documented by: A/P Assessment and plan (1) Gram-positive bacteremia: Status: Acute (2) Cellulitis of right lower extremity: Status: Acute (3) Hypertension: Status: Acute Qualifiers: Hypertension type: essential hypertension Qualified Code(s): I10 - Essential (primary) hypertension (4) Anemia, normocytic normochromic: Status: Acute Narrative A/P Narrative: Assessment and Plans: 1. Right lower leg cellulitis: Wound culture from 11/09/20 grew S aureus and group A strep Consult Dr. Davila, recs. appreciated-->surgical debridement today Continue Vancomycin Continue pain management Tylenol PRN fever cbc w/ auto diff in the morning to trend WBC Physical therapy Occupational therapy 2. Bacteremia: Blood culture from 11/08/20 grew Coagulase negative staph Repeat blood culture from 11/10/20 no grow to date 2D echocardiogram to rule out endocarditis, reports pending Vancomycin Tylenol PRN fever cbc w/ auto diff in the morning to trend WBC 3. Essential HTN: Currently elevated blood pressure Lisinopril 10mg PO daily Hydralazine 10mg IV q4-6hr PRN SBP>=180mmHg and/or DBP>=110mmHg 4. Anemia, normocytic normochromic: cbc w/ auto diff daily to trend H/H; transfuse pRBC if hemoglobin <7.0, active bleeding, or symptomatic GI ppx: PO Protonix DVT ppx: Lovenox Code status: Full Prognosis: Guarded Disposition: inpatient med surg; PT OT to recs. Time Spent With Patient Time: Total time spent is greater than 50% in coordination of care (as documented) at patient's floor/unit and/or counseling patient:
--- NOTE | 2020-11-13 08:53 | EKG ---
[facility] Test Date: 2020-11-13 Pat Name: Jamie Parker Department: [facility] Room: 133 Gender: Male E Tailer: : 1975 Requested By: Aida Ferraro Order Number: [id number] Reading MD: Weston Ramos M.D. Measurements Intervals [place] Rate: 92 P: 32 ND: 156 QRS: -39 QRSD: 108 T: 65 QT: 380 QTc: 471 Interpretive Statements SINUS RHYTHM BORDERLINE IVCD WITH LAD, LASB NO TRACING FOUND IN [facility] OHIOTECH BORDERLINE TRACING STAT READING Electronically Signed On 11-13-2020 8:52:37 PDT by Weston Ramos M.D. /[email or web address]/[email or web address]/[id number]
[2020-11-13] MEDS: DOCUSATE SODIUM 100 MG CAPSULE PO SCH ×2 (09:08→21:19)
[2020-11-13] MEDS: PANTOPRAZOLE 40 MG TABLET PO SCH (09:08)
[2020-11-13] MEDS: VERAPAMIL 180 MG TAB.XL.24H PO SCH (09:08)
[2020-11-13] MEDS: LISINOPRIL 10 MG TABLET PO SCH (09:08)
[2020-11-13] MEDS: VANCOMYCIN 2,000 MG in 0.9 % SODIUM CHLORIDE 500 ML IV SCH ×2 (10:18→21:10)
[2020-11-13] MEDS: ENOXAPARIN 60 MG/0.6 ML SYRINGE SQ SCH ×2 (10:29→21:11)
[2020-11-13 11:28] LABS: Hemoglobin A1C 5.8 % Hgb (4.0-6.0)
[2020-11-13] MEDS ORDERED: PROPOFOL 200 MG/20 ML VIAL IV ONE (12:13)
[2020-11-13] MEDS ORDERED: GLYCOPYRROLATE 0.2 MG/ML VIAL IV ONE (12:13)
[2020-11-13] MEDS ORDERED: LIDOCAINE HCL/PF 100 MG/5 ML SYRINGE IV ONE (12:13)
[2020-11-13] MEDS ORDERED: ONDANSETRON 4 MG/2 ML VIAL ONE (12:13)
[2020-11-13] MEDS ORDERED: KETAMINE 100 MG/ML ML ONE (12:13)
[2020-11-13] MEDS ORDERED: MIDAZOLAM 5 MG/5 ML VIAL ONE (12:13)
--- NOTE | 2020-11-13 12:52 | Brief Operative Note ---
Brief Operative Note Date of procedure: 11/13/20 Pre-op diagnosis: Resolving sepsis. CSSSI RIGHT thigh, leg and ankle Post-op diagnosis: same Procedure: Excision debridement and pulse lavage Grafts/Implants: No Anesthesia: conscious sedation Findings: Dimensions: RIGHT medial knee 10 x 8 x 1.5 CM RIGHT medial lower leg and ankle 14 x14 x 2 CM Stage 2 and Stage 3 wounds. Wound base deep dermis Complications: none Surgeon: Renny Davila Estimated blood loss (cc): 10 Condition: stable Disposition: PACU
[2020-11-13] MEDS ORDERED: GENTAMICIN SULFATE 800 MG/20 ML VIAL IR ONE (12:54)
[2020-11-13] MEDS ORDERED: BACITRACIN TOPICAL OINT 15 GM TUBE TOPICAL ONE (12:56)
--- NOTE | 2020-11-13 13:03 | General Surgery Progress Note ---
SUBJECTIVE Subjective Patient information: Note initiated : 11/11/20 at 12:14 pm Service Date, if different from initiated Date: [] Patient: Jamie Parker 45 y/o M admitted on 11/09/20 for rt leg edema. Chief Complaint: [] Constitutional Vitals: Vital Signs Temp Pulse Resp BP Pulse Ox 98.5 F 74 22 135/80 94 11/11/20 08:00 11/11/20 08:00 11/11/20 08:00 11/11/20 08:00 11/11/20 08:00 Period Temp Pulse Resp BP Sys/Paulino Pulse Ox Last 24 Hr 97.7 F-99.1 F 68-76 14-22 126-155/69-82 90-95 Intake and Output 11/10/20 11/11/20 11/11/20 21:59 05:59 13:59 Intake Total 2104 234 1454 Output Total 1900 1175 1500 Balance 204 -941 -46 Weight 432 lb 4.8 oz Intake & Output: Intake & Output 11/10/20 11/11/20 11/11/20 21:59 05:59 13:59 Intake Total 2104 234 1454 Output Total 1900 1175 1500 Balance 204 -941 -46 Weight 432 lb 4.8 oz Intake: IV 604 54 654 Cleocin 600 mg In Dextrose 5% 54 54 54 in Water 50 ml @ 100 mls/hr IV Q8H [facility] Rx#:[id number] Vancomycin 1,500 mg In Sodium 500 500 Chloride 0.9% 500 ml @ 333.3 mls/hr IV Q12H [facility] Rx#: [id number] Rocephin 2 gm In Dextrose 5% in 50 Water 50 ml @ 100 mls/hr IV Q24H [facility] Rx#:[id number] Oral 1500 180 800 Output: Urine Catheter Amount 1175 1500 Void Amount 1900 Other: Meal Breakfast Percent of Meal Consumed 15 Urine Appearance Clear Clear Clear Uretheral ([place]) Clear Clear Urine Color Pale Dark Yellow Bright Yellow Uretheral ([place]) Dark Yellow Dark Yellow Urine Odor Uretheral ([place]) Strong Stool Size Moderate Stool Color Brown Stool Consistency Soft Loose # Bowel Movements 1 General appearance: cooperative and no acute distress Exam: AVSS, No changes DAVID L/E: Resolving CSSSI / Cellulitis Right LE A/P Narrative A/P Narrative: Assessment: Patient seen with Rafael Carrero RN. Wound Care nurse, Progress and wound care orders reviewed Plan: Continue ongoing treaatment. Time Spent With Patient Time: Total time spent is greater than 50% in coordination of care (as documented) at patient's floor/unit and/or counseling patient: Total time spent with greater than 50% in coordination of care (as documented) at patient's floor/unit and/or counseling patient:: 15 - 24 minutes
--- NOTE | 2020-11-13 13:56 | Operative Note ---
DATE OF OPERATION: 11/13/2020 PREOPERATIVE DIAGNOSES: Resolving sepsis, complicated skin and skin structure infection-- right thigh, leg and medial ankle. POSTOPERATIVE DIAGNOSES: Resolving sepsis, complicated skin and skin structure infection-- right thigh, leg and medial ankle. PROCEDURE: Excision, debridement and pulse lavage. ANESTHESIA: Conscious sedation. [employer]ER: Aida Ferraro CRNA and Jaison __DANIA ESTIMATED BLOOD LOSS: 10 mL. INSTRUMENT COUNTS: Count of swabs, instruments and needles reported to be correct. Procedure was well tolerated. PROCEDURE IN DETAIL: After obtaining informed consent, patient was taken to the operating room. Time out was called. We carried out this procedure on the patient's bed. He is a super morbidly obese patient who needs debridement of his wounds and unroofing of his blisters. The right lower extremity was widely cleaned, prepped, and draped from the mid thigh up to the toes. The patient was placed in Trendelenburg position. Using pickup and scissors. The blisters were unroofed and the devitalized skin was excised. Gentle washout was carried out and the wound bases were cleaned with pulse lavage irrigation using 3 liters of normal saline mixed with 800 mg of gentamicin solution. This allowed for the separation of the slough from the wound surface. This was further cleaned with a #7 blunt curette. Airplane Fueler sample was obtained from the lower leg wound for cultures and sensitivities, aerobic and anaerobic bacteria. All areas of the wound were treated with bacitracin ointment, Adaptic gauze, 4 x 4 gauze, Kerlix, and Gael bandages applied from the lower ankle to the mid thighs. Operation was well tolerated. VD:sangita Job ID: [id number] Doc ID: [id number] MD CLIFFORD López
[2020-11-13 16:22] LABS: Basophils # (Auto) 0.07 K/mcL (0.00-0.20); Basophils % (Auto) 0.6 % (0.0-2.0); Eosinophils # (Auto) 0.28 K/mcL (0.00-0.70); Eosinophils % (Auto) 2.3 % (0.0-7.0); Hematocrit 36.1 % (41.0-55.0); Hemoglobin 11.4 g/dL (13.5-16.5); Lymphocytes # (Auto) 2.16 K/mcL (1.50-4.80); Lymphocytes % (Auto) 17.7 % (15.0-49.0); Mean Cell Volume 93.5 fL (80.0-100.0); Mean Corpuscular HGB Conc 31.6 g/dL (31.0-36.0); Mean Platelet Volume 9.6 fL (7.4-10.4); Monocytes # (Auto) 0.51 K/mcL (0.10-0.90); Monocytes % (Auto) 4.2 % (1.0-12.0); Platelet Count 288 K/mcL (140-440); RBC 3.86 M/mcL (4.50-5.90); Red Cell Distribution Width 14.8 % (11.5-14.5); WBC 12.2 K/mcL (4.5-11.0)
[2020-11-13 17:20] LABS: Neutrophils % (Auto) 75.2 % (38.0-78.0)
[2020-11-14] MEDS: 0.9 % SODIUM CHLORIDE 10 ML SYRINGE IV SCH ×3 (04:19→21:40)
[2020-11-14] MEDS: HYDROcodone/APAP 10/325MG TABLET PO PRN ×5 (05:35→21:52)
[2020-11-14 07:07] LABS: Basophils # (Auto) 0.05 K/mcL (0.00-0.20); Basophils % (Auto) 0.5 % (0.0-2.0); Eosinophils # (Auto) 0.27 K/mcL (0.00-0.70); Eosinophils % (Auto) 2.6 % (0.0-7.0); Hemoglobin 11.5 g/dL (13.5-16.5); Lymphocytes # (Auto) 1.93 K/mcL (1.50-4.80); Lymphocytes % (Auto) 18.4 % (15.0-49.0); Mean Cell Volume 94.5 fL (80.0-100.0); Mean Corpuscular HGB Conc 30.3 g/dL (31.0-36.0); Mean Platelet Volume 9.6 fL (7.4-10.4); Monocytes % (Auto) 4.8 % (1.0-12.0); Neutrophils % (Auto) 73.7 % (38.0-78.0); Platelet Count 269 K/mcL (140-440); RBC 4.02 M/mcL (4.50-5.90); Red Cell Distribution Width 14.8 % (11.5-14.5)
[2020-11-14 07:16] LABS: ALT/SGPT 20 U/L (<40); AST/SGOT 31 U/L (<40); Albumin 2.7 gm/dL (3.2-5.2); Albumin/Globulin Ratio 0.5 (1.0-2.3); Alkaline Phosphatase 76 U/L (39-117); Bilirubin,Total 0.4 mg/dL (0.1-1.0); Blood Urea Nitrogen 7 mg/dL (6-20); Calcium 8.5 mg/dL (8.6-10.4); Carbon Dioxide 31 mmol/L (22-30); Chloride 100 mmol/L (96-108); Globulin 5.3 gm/dL (2.2-3.7); Glomerular Filtration Rate 103; Glucose 75 mg/dL (70-105)
[2020-11-14 09:15] LABS: WBC 10.5 K/mcL (4.5-11.0)
[2020-11-14] MEDS: ENOXAPARIN 60 MG/0.6 ML SYRINGE SQ SCH ×2 (09:15→20:19)
[2020-11-14] MEDS: PANTOPRAZOLE 40 MG TABLET PO SCH (09:18)
[2020-11-14] MEDS: DOCUSATE SODIUM 100 MG CAPSULE PO SCH ×3 (09:18→21:52)
[2020-11-14] MEDS: LISINOPRIL 10 MG TABLET PO SCH (09:18)
[2020-11-14] MEDS: VERAPAMIL 180 MG TAB.XL.24H PO SCH (09:29)
[2020-11-14] MEDS: VANCOMYCIN 1,500 MG in 0.9 % SODIUM CHLORIDE 500 ML IV SCH ×2 (10:34→21:40)
--- NOTE | 2020-11-14 12:04 | Internal Med Progress Note ---
SUBJECTIVE Subjective Patient information: Note initiated : 11/14/20 at 11:59 am Service Date, if different from initiated Date: [] Patient: Jamie Parker 45 y/o M admitted on 11/09/20 for rt leg edema. Chief Complaint: [right lower leg cellulitis] 11/12/20: Afebrile overnight. Blood culture from 11/10/20 no grow to date. Patient is c/o mild to moderate right lower leg pain. Denies nausea or vomiting. Denies fever. 11/13/20: Afebrile overnight. Blood culture from 11/10/20 no grow to date. Patient is c/o mild right lower leg pain. Denies nausea or vomiting. Denies fever. WBC down-trended from 17.6 to 14.2. 11/14/20: s/p wound debridement by Dr. Davila on 11/13/20. Afebrile overnight. Wound culture from 11/09/20 grew gtroup A strep and MSSA. Patient is c/o mild right lower leg pain. Denies nausea or vomiting. WBC down from 12.2 to 10.5. Constitutional Vitals: Vital Signs Temp Pulse Resp BP Pulse Ox 36.7 C 93 H 20 131/68 92 11/13/20 18:43 11/13/20 21:54 11/13/20 18:43 11/13/20 21:54 11/13/20 21:54 Period Temp Pulse Resp BP Sys/Paulino Pulse Ox Last 24 Hr 36.7 C-36.8 C 71-97 20-23 131-154/68-94 90-100 Intake and Output 11/13/20 11/14/20 11/14/20 21:59 05:59 13:59 Intake Total 300 980 0 Output Total 800 Balance -500 980 0 Weight 196.904 kg Intake & Output: Intake & Output 11/13/20 11/14/20 11/14/20 21:59 05:59 13:59 Intake Total 300 980 0 Output Total 800 Balance -500 980 0 Weight 196.904 kg Intake: IV 500 Vancomycin 2,000 mg In Sodium 500 Chloride 0.9% 500 ml @ 250 mls/ hr IV Q12H [facility] Rx#:[id number] Oral 300 480 0 Output: Urine Catheter Amount 800 Other: Meal Breakfast Percent of Meal Consumed 100% Feeding Ability Independent Urine Appearance Clear Uretheral ([place]) Clear Urine Color Bright Yellow Uretheral ([place]) Bright Yellow Urine Odor Uretheral ([place]) Normal Stool Size Large Stool Color Brown Stool Consistency Soft General appearance: cooperative and no acute distress Head Head exam: Present atraumatic and normocephalic Eye Eye exam: Present EOMI and PERRL ENT ENT exam: Present mucous membranes moist, normal exam and normal external ear exam Neck Neck exam: Present normal inspection; Absent lymphadenopathy, tenderness and thyromegaly Respiratory Respiratory exam: Absent accessory muscle use, respiratory distress and wheezes Cardiovascular Cardiovascular exam: Present normal rate and rhythm; Absent JVD GI/Abdominal GI/Abdominal exam: Present normal bowel sounds and soft; Absent organomegaly and tenderness Rectal Rectal exam: Present deferred Additional comments: Conway catheter in place Extremities Exam Extremities exam: Present full ROM, normal capillary refill and normal inspection; Absent tenderness Neurological Exam Neurological exam: Present alert, CN II-XII intact and oriented X3; Absent motor sensory deficit Psychiatric Psychiatric exam: Present normal affect and normal mood; Absent anxious and depressed Skin Skin exam: Absent dry and intact Additional comments: Right lower leg covered by surgical dressing OBJ DATA Labs CBC & Chem 7: 11/14/20 05:16 11/14/20 05:16 Labs: Abnormal Lab Results 11/14/20 11/14/20 11/13/20 05:16 05:16 15:24 WBC 12.2 H RBC 4.02 L 3.86 L Hgb 11.5 L 11.4 L Hct 38.0 L 36.1 L MCHC 30.3 L RDW 14.8 H 14.8 H Absolute Neutrophils 9.19 H ESR Carbon Dioxide 31 H Anion Gap 6.0 L Calcium 8.5 L C-Reactive Protein 5.70 H Albumin 2.7 L Globulin 5.3 H Albumin/Globulin Ratio 0.5 L 11/13/20 11/13/20 11/12/20 05:15 05:15 05:47 WBC 14.2 H RBC 3.87 L Hgb 11.3 L Hct 36.7 L MCHC 30.8 L RDW 15.0 H Absolute Neutrophils 10.77 H ESR Carbon Dioxide Anion Gap Calcium C-Reactive Protein Albumin 2.5 L 2.4 L Globulin 5.1 H 5.3 H Albumin/Globulin Ratio 0.5 L 0.5 L 07/22/21 07/22/21 07/22/21 05:47 05:47 05:47 WBC 17.6 H RBC 3.78 L Hgb 10.9 L Hct 35.4 L MCHC 30.8 L RDW 14.7 H Absolute Neutrophils 13.45 H ESR 119 H Carbon Dioxide Anion Gap Calcium C-Reactive Protein 13.10 H Albumin Globulin Albumin/Globulin Ratio Meds: Medications Acetaminophen (Acetaminophen 325 Mg Tablet) 650 mg PO Q6HP PRN; Protocol PRN Reason: Per Pain Protocol/Fever > 101 Last Admin: 11/10/20 15:20 Dose: 650 mg Documented by: Hydrocodone Bitart/Acetaminophen (Hydrocodone/Apap 10/325mg Tablet) 1 tab PO Q4HP PRN; Protocol PRN Reason: pain Last Admin: 11/14/20 09:16 Dose: 1 tab Documented by: Calcium Carbonate/Glycine (Calcium Carbonate 500 Mg Tab.Chew) 500 mg CHEWED Q4HP PRN PRN Reason: Dyspepsia Last Admin: 11/12/20 06:53 Dose: 500 mg Documented by: Diphenhydramine HCl (Diphenhydramine 25 Mg Capsule) 25 mg PO HSP PRN PRN Reason: Insomnia Last Admin: 11/10/20 20:03 Dose: 25 mg Documented by: Docusate Sodium (Docusate Sodium 100 Mg Capsule) 100 mg PO BID [facility] Last Admin: 11/14/20 09:18 Dose: 100 mg Documented by: Enoxaparin Sodium (Enoxaparin 60 Mg/0.6 Ml Syringe) 60 mg SQ BID [facility] Last Admin: 11/14/20 09:15 Dose: 60 mg Documented by: Hydralazine HCl (Hydralazine 20 Mg/Ml Vial) 10 mg IV Q4-6HP PRN PRN Reason: Hypertension Potassium Chloride 40 meq/ (Dextrose) 520 mls @ 130 mls/hr IV UD PRN PRN Reason: Potassium < 3 Magnesium Sulfate (Magnesium Sulfate) 2 gm in 50 mls @ 50 mls/hr IV UD PRN PRN Reason: Magnesium </= 1.6 Vancomycin HCl 1,500 mg/ (Sodium Chloride) 500 mls @ 333.3 mls/hr IV Q12H [facility] Last Admin: 11/14/20 10:34 Dose: 333.3 mls/hr Documented by: Lactulose (Lactulose 20 Gm/30 Ml Oral.Sheri) 10 gm PO DAILYP PRN PRN Reason: Constipation Lisinopril (Lisinopril 10 Mg Tablet) 10 mg PO DAILY [facility] Last Admin: 11/14/20 09:18 Dose: 10 mg Documented by: Melatonin (Melatonin 3 Mg Tablet) 3 mg PO HSP PRN PRN Reason: Insomnia Last Admin: 11/10/20 20:03 Dose: 3 mg Documented by: Metoclopramide HCl (Metoclopramide 10 Mg/2 Ml Vial) 10 mg IV Q6HP PRN PRN Reason: Nausea And Vomiting Last Admin: 11/11/20 14:30 Dose: 10 mg Documented by: Morphine Sulfate (Morphine 2 Mg/Ml Vial) 1 - 4 mg IV Q3H PRN PRN Reason: pain Last Admin: 11/10/20 20:21 Dose: 4 mg Documented by: Ondansetron HCl (Ondansetron 4 Mg/2 Ml Vial) 4 mg IV Q4HP PRN; Protocol PRN Reason: Nausea And Vomiting Last Admin: 11/11/20 14:05 Dose: 4 mg Documented by: Pantoprazole Sodium (Pantoprazole 40 Mg Tablet) 40 mg PO DAILY [facility] Last Admin: 11/14/20 09:18 Dose: 40 mg Documented by: Polyethylene Glycol (Polyethylene Glycol 3350 17 Gm Packet) 17 gm PO DAILYP PRN PRN Reason: Constipation Potassium Chloride (Potassium Chloride 20 Meq Tablet) 40 meq PO UD PRN PRN Reason: Potssium is 3-3.5 Potassium Chloride (Potassium Chloride 20 Meq Tablet) 40 meq PO UD PRN PRN Reason: Potassium < 3 Promethazine HCl (Promethazine 25 Mg/Ml Vial) 25 mg IV Q4-6HP PRN PRN Reason: Nausea And Vomiting Last Admin: 11/11/20 16:15 Dose: 25 mg Documented by: Scopolamine (Scopolamine 1 Patch Patch) 1 patch TOPICAL PREOP PRN PRN Reason: Nausea And Vomiting Senna (Sennosides 1 Tablet) 2 tab PO DAILYP PRN PRN Reason: Constipation Sodium Chloride (0.9 % Sodium Chloride 10 Ml Syringe) 10 ml IV Q8 [facility] Last Admin: 11/14/20 04:19 Dose: 10 ml Documented by: Throat Lozenges (Benzocaine/Menthol 1 Lozenge) 1 lozenge PO Q4HP PRN PRN Reason: Sore Throat Last Admin: 11/13/20 09:11 Dose: 1 lozenge Documented by: Vancomycin HCl (Vancomycin Per Pharmacy) 1 order IV UD [facility]; Protocol Verapamil HCl (Verapamil 180 Mg Tab.Xl.24h) 360 mg PO QDAY [facility] Last Admin: 11/14/20 09:29 Dose: 360 mg Documented by: A/P Assessment and plan (1) Gram-positive bacteremia: Status: Acute (2) Cellulitis of right lower extremity: Status: Acute (3) Hypertension: Status: Acute Qualifiers: Hypertension type: essential hypertension Qualified Code(s): I10 - Essential (primary) hypertension (4) Anemia, normocytic normochromic: Status: Acute Narrative A/P Narrative: Assessment and Plans: 1. Right lower leg cellulitis: Wound culture from 11/09/20 grew S aureus and group A strep s/p wound debridement by Dr. Davila on 11/13/20. Continue Vancomycin, consider changing to PO antibiotics at time of discharge Continue pain management Tylenol PRN fever cbc w/ auto diff in the morning to trend WBC Physical therapy Occupational therapy 2. Bacteremia: Blood culture from 11/08/20 grew Coagulase negative staph Repeat blood culture from 11/10/20 no grow to date 2D echocardiogram to rule out endocarditis, reports pending Vancomycin Tylenol PRN fever cbc w/ auto diff in the morning to trend WBC 3. Essential HTN: Currently elevated blood pressure Lisinopril 10mg PO daily Hydralazine 10mg IV q4-6hr PRN SBP>=180mmHg and/or DBP>=110mmHg 4. Anemia, normocytic normochromic: cbc w/ auto diff daily to trend H/H; transfuse pRBC if hemoglobin <7.0, active bleeding, or symptomatic GI ppx: PO Protonix DVT ppx: Lovenox Code status: Full Prognosis: stable Disposition: inpatient med surg; PT OT to recs. Time Spent With Patient Time: Total time spent is greater than 50% in coordination of care (as docume nted) at patient's floor/unit and/or counseling patient:
--- NOTE | 2020-11-14 12:43 | General Surgery Progress Note ---
SUBJECTIVE Subjective Patient information: Note initiated : 11/14/20 at 12:38 pm Service Date, if different from initiated Date: [] Patient: Jamie Parker 45 y/o M admitted on 11/09/20 for rt leg edema. Chief Complaint: [] Additional PMFSH (Level 3 Only): POD # 1. Looks good and feels well. Pain is less. Walked again. Constitutional Vitals: Vital Signs Temp Pulse Resp BP Pulse Ox 99 F 79 16 180/88 98 11/14/20 12:00 11/14/20 12:00 11/14/20 12:00 11/14/20 12:00 11/14/20 12:00 Period Temp Pulse Resp BP Sys/Paulino Pulse Ox Last 24 Hr 98.1 F-99 F 71-97 16-23 131-180/68-94 90-100 Intake and Output 11/13/20 11/14/20 11/14/20 21:59 05:59 13:59 Intake Total 300 980 0 Output Total 800 Balance -500 980 0 Weight 434 lb 1.6 oz Intake & Output: Intake & Output 11/13/20 11/14/20 11/14/20 21:59 05:59 13:59 Intake Total 300 980 0 Output Total 800 Balance -500 980 0 Weight 434 lb 1.6 oz Intake: IV 500 Vancomycin 2,000 mg In Sodium 500 Chloride 0.9% 500 ml @ 250 mls/ hr IV Q12H [facility] Rx#:[id number] Oral 300 480 0 Output: Urine Catheter Amount 800 Other: Meal Breakfast Percent of Meal Consumed 100% Feeding Ability Independent Urine Appearance Clear Uretheral ([place]) Clear Urine Color Bright Yellow Uretheral ([place]) Bright Yellow Urine Odor Uretheral ([place]) Normal Stool Size Large Stool Color Brown Stool Consistency Soft General appearance: cooperative, morbidly obese and no acute distress Exam: AVSS. No changes in DAVID. Dressings RIGHT LE ; CDI Labs: WBC,Lytes, BUN/Cr all NORMAL CRP is trending down to near normal Intra Op c/s result awaited. A/P Narrative A/P Narrative: Assessment: Satisfactory progress. Spoke with RN, Hospitalist. Plan: Continue present treatment. Change of dressing on Monday. Anticipate d/c home early next week. Time Spent With Patient Time: Total time spent is greater than 50% in coordination of care (as documented) at patient's floor/unit and/or counseling patient: Total time spent with greater than 50% in coordination of care (as documented) at patient's floor/unit and/or counseling patient:: 15 - 24 minutes
[2020-11-14] MEDS: VANCOMYCIN 2,000 MG in 0.9 % SODIUM CHLORIDE 500 ML IV SCH (14:12)
[2020-11-15] MEDS: HYDROcodone/APAP 10/325MG TABLET PO PRN ×5 (04:35→23:20)
[2020-11-15] MEDS: 0.9 % SODIUM CHLORIDE 10 ML SYRINGE IV SCH ×3 (05:03→21:10)
[2020-11-15 07:42] LABS: ALT/SGPT 18 U/L (<40); AST/SGOT 30 U/L (<40); Albumin 2.7 gm/dL (3.2-5.2); Albumin/Globulin Ratio 0.6 (1.0-2.3); Alkaline Phosphatase 67 U/L (39-117); Bilirubin,Total 0.4 mg/dL (0.1-1.0); Blood Urea Nitrogen 7 mg/dL (6-20); Calcium 8.2 mg/dL (8.6-10.4); Carbon Dioxide 27 mmol/L (22-30); Chloride 102 mmol/L (96-108); Globulin 4.9 gm/dL (2.2-3.7); Glomerular Filtration Rate 103; Glucose 82 mg/dL (70-105)
[2020-11-15] MEDS: ENOXAPARIN 60 MG/0.6 ML SYRINGE SQ SCH ×2 (08:36→21:10)
[2020-11-15] MEDS: VERAPAMIL 180 MG TAB.XL.24H PO SCH (08:36)
[2020-11-15] MEDS: LISINOPRIL 10 MG TABLET PO SCH (08:36)
[2020-11-15] MEDS: DOCUSATE SODIUM 100 MG CAPSULE PO SCH ×2 (08:36→21:10)
[2020-11-15] MEDS: PANTOPRAZOLE 40 MG TABLET PO SCH (08:36)
[2020-11-15 09:41] LABS: Basophils # (Auto) 0.07 K/mcL (0.00-0.20); Basophils % (Auto) 0.8 % (0.0-2.0); Eosinophils # (Auto) 0.27 K/mcL (0.00-0.70); Eosinophils % (Auto) 3.1 % (0.0-7.0); Hematocrit 36.2 % (41.0-55.0); Hemoglobin 11.3 g/dL (13.5-16.5); Lymphocytes # (Auto) 1.76 K/mcL (1.50-4.80); Mean Cell Volume 92.1 fL (80.0-100.0); Mean Corpuscular HGB Conc 31.2 g/dL (31.0-36.0); Mean Platelet Volume 11.3 fL (7.4-10.4); Monocytes # (Auto) 0.43 K/mcL (0.10-0.90); Monocytes % (Auto) 4.9 % (1.0-12.0); Neutrophils % (Auto) 71.2 % (38.0-78.0); Platelet Count 281 K/mcL (140-440); RBC 3.93 M/mcL (4.50-5.90); Red Cell Distribution Width 14.6 % (11.5-14.5); WBC 8.8 K/mcL (4.5-11.0)
[2020-11-15] MEDS: VANCOMYCIN 1,500 MG in 0.9 % SODIUM CHLORIDE 500 ML IV SCH ×2 (09:53→21:10)
--- NOTE | 2020-11-15 12:14 | Internal Med Progress Note ---
SUBJECTIVE Subjective Patient information: Note initiated : 11/15/20 at 12:11 pm Service Date, if different from initiated Date: [] Patient: Jamie Parker 45 y/o M admitted on 11/09/20 for rt leg edema. Chief Complaint: [right leg cellulitis] 11/12/20: Afebrile overnight. Blood culture from 11/10/20 no grow to date. Patient is c/o mild to moderate right lower leg pain. Denies nausea or vomiting. Denies fever. 11/13/20: Afebrile overnight. Blood culture from 11/10/20 no grow to date. Patient is c/o mild right lower leg pain. Denies nausea or vomiting. Denies fever. WBC down-trended from 17.6 to 14.2. 11/14/20: s/p wound debridement by Dr. Davila on 11/13/20. Afebrile overnight. Wound culture from 11/09/20 grew gtroup A strep and MSSA. Patient is c/o mild right lower leg pain. Denies nausea or vomiting. WBC down from 12.2 to 10.5. 11/14/20: Afebrile overnight. Repeat blood cultures no growth to date. Denies mild right lower leg pain. Denies nausea or vomiting. Otherwise there was no other major overnight events. Constitutional Vitals: Vital Signs Temp Pulse Resp BP Pulse Ox 36.3 C 93 H 20 155/95 95 11/15/20 11:55 11/15/20 11:55 11/15/20 11:55 11/15/20 11:55 11/15/20 11:55 Period Temp Pulse Resp BP Sys/Paulino Pulse Ox Last 24 Hr 36.2 C-36.8 C 76-93 16-20 129-165/67-95 91-95 Intake and Output 11/14/20 11/15/20 11/15/20 21:59 05:59 13:59 Intake Total 980 1200 1520 Output Total 350 1550 Balance 630 -350 1520 Weight 196.632 kg Intake & Output: Intake & Output 11/14/20 11/15/20 11/15/20 21:59 05:59 13:59 Intake Total 980 1200 1520 Output Total 350 1550 Balance 630 -350 1520 Weight 196.632 kg Intake: IV 500 500 Vancomycin 1,500 mg In Sodium 500 500 Chloride 0.9% 500 ml @ 333.3 mls/hr IV Q12H [facility] Rx#: [id number] Oral 182 [id number] Output: Urine Catheter Amount 350 1550 Other: Meal Dinner Breakfast Percent of Meal Consumed 100% 100% Urine Appearance Clear Clear Uretheral ([place]) Clear Clear Urine Color Bright Yellow Dark Yellow Uretheral ([place]) Dark Yellow Urine Odor Normal Uretheral ([place]) Normal Stool Size Moderate Moderate Stool Color Brown Brown Stool Consistency Normal for Patient Formed Soft # Bowel Movements 1 General appearance: cooperative and no acute distress Head Head exam: Present atraumatic and normocephalic Eye Eye exam: Present EOMI and PERRL ENT ENT exam: Present mucous membranes moist, normal exam and normal external ear exam Neck Neck exam: Present normal inspection; Absent lymphadenopathy, tenderness and thyromegaly Respiratory Respiratory exam: Absent accessory muscle use, respiratory distress and wheezes Cardiovascular Cardiovascular exam: Present normal rate and rhythm; Absent JVD GI/Abdominal GI/Abdominal exam: Present normal bowel sounds and soft; Absent organomegaly and tenderness Rectal Rectal exam: Present deferred Additional comments: Conway catheter in place Extremities Exam Extremities exam: Present full ROM, normal capillary refill and normal inspection; Absent tenderness Additional comments: Right lower leg being covered by elyssa-wrap Neurological Exam Neurological exam: Present alert, CN II-XII intact and oriented X3; Absent motor sensory deficit Psychiatric Psychiatric exam: Present normal affect and normal mood; Absent anxious and depressed Skin Skin exam: Absent dry and intact Additional comments: Right lower leg being covered by elyssa-wrap OBJ DATA Labs CBC & Chem 7: 11/15/20 08:36 11/15/20 05:15 Labs: Abnormal Lab Results 11/15/20 11/15/20 11/14/20 08:36 05:15 05:16 WBC RBC 3.93 L Hgb 11.3 L Hct 36.2 L MCHC RDW 14.6 H MPV 11.3 H Absolute Neutrophils Carbon Dioxide 31 H Anion Gap 6.0 L Calcium 8.2 L 8.5 L C-Reactive Protein 5.70 H Albumin 2.7 L 2.7 L Globulin 4.9 H 5.3 H Albumin/Globulin Ratio 0.6 L 0.5 L 11/14/20 11/13/20 11/13/20 05:16 15:24 05:15 WBC 12.2 H RBC 4.02 L 3.86 L Hgb 11.5 L 11.4 L Hct 38.0 L 36.1 L MCHC 30.3 L RDW 14.8 H 14.8 H MPV Absolute Neutrophils 9.19 H Carbon Dioxide Anion Gap Calcium C-Reactive Protein Albumin 2.5 L Globulin 5.1 H Albumin/Globulin Ratio 0.5 L 11/13/20 05:15 WBC 14.2 H RBC 3.87 L Hgb 11.3 L Hct 36.7 L MCHC 30.8 L RDW 15.0 H MPV Absolute Neutrophils 10.77 H Carbon Dioxide Anion Gap Calcium C-Reactive Protein Albumin Globulin Albumin/Globulin Ratio Meds: Medications Acetaminophen (Acetaminophen 325 Mg Tablet) 650 mg PO Q6HP PRN; Protocol PRN Reason: Per Pain Protocol/Fever > 101 Last Admin: 11/10/20 15:20 Dose: 650 mg Documented by: Hydrocodone Bitart/Acetaminophen (Hydrocodone/Apap 10/325mg Tablet) 1 tab PO Q4HP PRN; Protocol PRN Reason: pain Last Admin: 11/15/20 08:35 Dose: 1 tab Documented by: Calcium Carbonate/Glycine (Calcium Carbonate 500 Mg Tab.Chew) 500 mg CHEWED Q4 HP PRN PRN Reason: Dyspepsia Last Admin: 11/12/20 06:53 Dose: 500 mg Documented by: Diphenhydramine HCl (Diphenhydramine 25 Mg Capsule) 25 mg PO HSP PRN PRN Reason: Insomnia Last Admin: 11/10/20 20:03 Dose: 25 mg Documented by: Docusate Sodium (Docusate Sodium 100 Mg Capsule) 100 mg PO BID [facility] Last Admin: 11/15/20 08:36 Dose: 100 mg Documented by: Enoxaparin Sodium (Enoxaparin 60 Mg/0.6 Ml Syringe) 60 mg SQ BID [facility] Last Admin: 11/15/20 08:36 Dose: 60 mg Documented by: Hydralazine HCl (Hydralazine 20 Mg/Ml Vial) 10 mg IV Q4-6HP PRN PRN Reason: Hypertension Potassium Chloride 40 meq/ (Dextrose) 520 mls @ 130 mls/hr IV UD PRN PRN Reason: Potassium < 3 Magnesium Sulfate (Magnesium Sulfate) 2 gm in 50 mls @ 50 mls/hr IV UD PRN PRN Reason: Magnesium </= 1.6 Vancomycin HCl 1,500 mg/ (Sodium Chloride) 500 mls @ 333.3 mls/hr IV Q12H [facility] Last Admin: 11/15/20 09:53 Dose: 333 mls/hr Documented by: Lactulose (Lactulose 20 Gm/30 Ml Oral.Sheri) 10 gm PO DAILYP PRN PRN Reason: Constipation Lisinopril (Lisinopril 10 Mg Tablet) 10 mg PO DAILY [facility] Last Admin: 11/15/20 08:36 Dose: 10 mg Documented by: Melatonin (Melatonin 3 Mg Tablet) 3 mg PO HSP PRN PRN Reason: Insomnia Last Admin: 11/10/20 20:03 Dose: 3 mg Documented by: Metoclopramide HCl (Metoclopramide 10 Mg/2 Ml Vial) 10 mg IV Q6HP PRN PRN Reason: Nausea And Vomiting Last Admin: 11/11/20 14:30 Dose: 10 mg Documented by: Morphine Sulfate (Morphine 2 Mg/Ml Vial) 1 - 4 mg IV Q3H PRN PRN Reason: pain Last Admin: 11/10/20 20:21 Dose: 4 mg Documented by: Ondansetron HCl (Ondansetron 4 Mg/2 Ml Vial) 4 mg IV Q4HP PRN; Protocol PRN Reason: Nausea And Vomiting Last Admin: 11/11/20 14:05 Dose: 4 mg Documented by: Pantoprazole Sodium (Pantoprazole 40 Mg Tablet) 40 mg PO DAILY [facility] Last Admin: 11/15/20 08:36 Dose: 40 mg Documented by: Polyethylene Glycol (Polyethylene Glycol 3350 17 Gm Packet) 17 gm PO DAILYP PRN PRN Reason: Constipation Potassium Chloride (Potassium Chloride 20 Meq Tablet) 40 meq PO UD PRN PRN Reason: Potssium is 3-3.5 Potassium Chloride (Potassium Chloride 20 Meq Tablet) 40 meq PO UD PRN PRN Reason: Potassium < 3 Promethazine HCl (Promethazine 25 Mg/Ml Vial) 25 mg IV Q4-6HP PRN PRN Reason: Nausea And Vomiting Last Admin: 11/11/20 16:15 Dose: 25 mg Documented by: Scopolamine (Scopolamine 1 Patch Patch) 1 patch TOPICAL PREOP PRN PRN Reason: Nausea And Vomiting Senna (Sennosides 1 Tablet) 2 tab PO DAILYP PRN PRN Reason: Constipation Sodium Chloride (0.9 % Sodium Chloride 10 Ml Syringe) 10 ml IV Q8 [facility] Last Admin: 11/15/20 05:03 Dose: 10 ml Documented by: Throat Lozenges (Benzocaine/Menthol 1 Lozenge) 1 lozenge PO Q4HP PRN PRN Reason: Sore Throat Last Admin: 11/13/20 09:11 Dose: 1 lozenge Documented by: Vancomycin HCl (Vancomycin Per Pharmacy) 1 order IV UD [facility]; Protocol Verapamil HCl (Verapamil 180 Mg Tab.Xl.24h) 360 mg PO QDAY [facility] Last Admin: 11/15/20 08:36 Dose: 360 mg Documented by: A/P Assessment and plan (1) Gram-positive bacteremia: Status: Acute (2) Cellulitis of right lower extremity: Status: Acute (3) Hypertension: Status: Acute Qualifiers: Hypertension type: essential hypertension Qualified Code(s): I10 - Essential (primary) hypertension (4) Anemia, normocytic normochromic: Status: Acute Narrative A/P Narrative: Assessment and Plans: 1. Right lower leg cellulitis: Wound culture from 11/09/20 grew S aureus and group A strep s/p wound debridement by Dr. Davila on 11/13/20. Continue Vancomycin, consider changing to PO antibiotics at time of discharge Continue pain management Tylenol PRN fever cbc w/ auto diff in the morning to trend WBC Physical therapy Occupational therapy 2. Bacteremia: Blood culture from 11/08/20 grew Coagulase negative staph Repeat blood culture from 11/10/20 no grow to date 2D echocardiogram to rule out endocarditis, reports pending Vancomycin Tylenol PRN fever cbc w/ auto diff in the morning to trend WBC 3. Essential HTN: Currently elevated blood pressure Lisinopril 10mg PO daily Hydralazine 10mg IV q4-6hr PRN SBP>=180mmHg and/or DBP>=110mmHg 4. Anemia, normocytic normochromic: cbc w/ auto diff daily to trend H/H; transfuse pRBC if hemoglobin <7.0, active bleeding, or symptomatic GI ppx: PO Protonix DVT ppx: Lovenox Code status: Full Prognosis: stable Disposition: inpatient med surg; PT OT to recs. Time Spent With Patient Time: Total time spent is greater than 50% in coordination of care (as documented) at patient's floor/unit and/or counseling patient:
[2020-11-16] MEDS: HYDROcodone/APAP 10/325MG TABLET PO PRN ×3 (05:25→14:35)
[2020-11-16] MEDS: 0.9 % SODIUM CHLORIDE 10 ML SYRINGE IV SCH ×2 (05:46→12:44)
[2020-11-16 07:45] LABS: Basophils # (Auto) 0.04 K/mcL (0.00-0.20); Basophils % (Auto) 0.6 % (0.0-2.0); Eosinophils # (Auto) 0.19 K/mcL (0.00-0.70); Eosinophils % (Auto) 2.6 % (0.0-7.0); Hematocrit 35.8 % (41.0-55.0); Hemoglobin 10.7 g/dL (13.5-16.5); Lymphocytes # (Auto) 1.43 K/mcL (1.50-4.80); Lymphocytes % (Auto) 19.8 % (15.0-49.0); Mean Cell Volume 96.8 fL (80.0-100.0); Mean Corpuscular HGB Conc 29.9 g/dL (31.0-36.0); Mean Platelet Volume 9.3 fL (7.4-10.4); Monocytes # (Auto) 0.45 K/mcL (0.10-0.90); Monocytes % (Auto) 6.2 % (1.0-12.0); Neutrophils % (Auto) 70.8 % (38.0-78.0); Platelet Count 238 K/mcL (140-440); Red Cell Distribution Width 14.6 % (11.5-14.5); WBC 7.2 K/mcL (4.5-11.0)
[2020-11-16] MEDS: PANTOPRAZOLE 40 MG TABLET PO SCH (08:18)
[2020-11-16] MEDS: VERAPAMIL 180 MG TAB.XL.24H PO SCH (08:18)
[2020-11-16] MEDS: ENOXAPARIN 60 MG/0.6 ML SYRINGE SQ SCH (08:19)
[2020-11-16] MEDS: DOCUSATE SODIUM 100 MG CAPSULE PO SCH (08:19)
[2020-11-16] MEDS: LISINOPRIL 10 MG TABLET PO SCH (08:19)
[2020-11-16 08:36] LABS: ALT/SGPT 16 U/L (<40); AST/SGOT 24 U/L (<40); Albumin 2.3 gm/dL (3.2-5.2); Albumin/Globulin Ratio 0.4 (1.0-2.3); Alkaline Phosphatase 63 U/L (39-117); Bilirubin,Total 0.3 mg/dL (0.1-1.0); Blood Urea Nitrogen 7 mg/dL (6-20); Calcium 8.3 mg/dL (8.6-10.4); Carbon Dioxide 25 mmol/L (22-30); Chloride 102 mmol/L (96-108); Globulin 5.4 gm/dL (2.2-3.7); Glomerular Filtration Rate 108; Glucose 90 mg/dL (70-105)
[2020-11-16] MEDS: VANCOMYCIN 1,500 MG in 0.9 % SODIUM CHLORIDE 500 ML IV SCH (10:53)
[2020-11-16] MEDS ORDERED: VANCOMYCIN 1,500 MG in 0.9 % SODIUM CHLORIDE 500 ML IV SCH (11:00)
--- NOTE | 2020-11-16 11:01 | Discharge Summary ---
Discharge Provider Provider Patient information: Note initiated : 11/16/20 at 10:56 am Service Date, if different from initiated Date: [] Patient: Jamie Parker 45 y/o M admitted on 11/09/20 for rt leg edema. Chief Complaint: [Right leg cellulitis] Date of admission: 11/09/20 02:11 Discharge date: 11/16/20 Primary care physician: Shaniqua Witt Consults: 11/08/20 Consult to Physician [CONS] Stat Comment: Consulting Provider: Micheal Gupta Reason For Exam: Physician to Consult 11/10/20 14:39 Consult to Physician [CONS] Routine Comment: Consulting Provider: Renny Davila Reason For Exam: wounds Discharge Meds Discharge Medications Home Medications naloxone 4 mg/actuation nasal spray 1 spray INTRANASAL Q5MIN PRN 12/12/18 [History Confirmed 11/08/20 Last Taken Unknown] hydrocodone 10 mg-acetaminophen 325 mg tablet 1 tab PO .Q6-8H PRN #120 tab 10/13/20 [Rx Confirmed 11/09/20 Last Taken 11/08/20 12:00] tramadol 300 mg tablet,extended release 24 hr 300 mg PO QDAY #30 tab 10/13/20 [Rx Confirmed 11/09/20 Last Taken 11/07/20 21:00] verapamil 360 mg 24 hr capsule,extended release 360 mg PO QDAY #90 cap 10/13/20 [Rx Confirmed 11/09/20 Last Taken 11/07/20 21:00] ciprofloxacin HCl [Cipro] 500 mg PO BID #14 tab 11/16/20 [Rx Last Taken Unknown] metronidazole [Flagyl] 500 mg PO TID #21 tab 11/16/20 [Rx Last Taken Unknown] COURSE Hospital Course Hospital course: Patient was admitted on November 09, 2020 for right lower leg cellulitis. After blood and wound cultures were collected, patient was started on IV vancomycin. Wound culture subsequently grew group B strep as well as MSSA. Blood culture grew coagulase-negative strep. Repeated blood culture no growth today. Wound care doctor Dr. Davila was consulted who performed wound debridement on November 13, 2020. Patient has an otherwise relatively uneventful course of recovery and by November 16, 2020, patient has been afebrile for more than 24 hours, any leukocytosis resolved, and otherwise reached clinical stability. As such, the decision was made to discharge him home with prescriptions of oral antibiotics Cipro and Flagyl sent to pharmacy. 1 week follow-up with Dr. Davila made for him. All questions were answered prior to patient being physically discharged. Discharge diagnosis: right leg cellulitis Time Spent with Patient Time attestation: Total time spent providing and/or coordinating discharge services: Patient was admitted on November 09, 2020 for right lower leg cellulitis. After blood and wound cultures were collected, patient was started on IV vancomycin. Wound culture subsequently grew group B strep as well as MSSA. Blood culture grew coagulase-negative strep. Repeated blood culture no growth today. Wound care doctor Dr. Davila was consulted who performed wound debridement on November 13, 2020. Patient has an otherwise relatively uneventful course of recovery and by November 16, 2020, patient has been afebrile for more than 24 hours, any leukocytosis resolved, and otherwise reached clinical stability. As such, the decision was made to discharge him home with prescriptions of oral antibiotics Cipro and Flagyl sent to pharmacy. 1 week follow-up with Dr. Davila made for him. All questions were answered prior to patient being physically discharged. EXAM Constitutional Vitals: Temp Pulse Resp BP Pulse Ox 36.7 C 64 22 153/89 96 11/16/20 08:00 11/16/20 08:00 11/16/20 08:00 11/16/20 08:00 11/16/20 08:00 General appearance: cooperative and no acute distress Head Head exam: Present atraumatic and normocephalic Eye Eye exam: Present EOMI and PERRL ENT ENT exam: Present mucous membranes moist, normal exam and normal external ear exam Neck Neck exam: Present normal inspection; Absent lymphadenopathy, tenderness and t hyromegaly Respiratory Respiratory exam: Absent accessory muscle use, respiratory distress and wheezes Cardiovascular Cardiovascular exam: Present normal rate and rhythm; Absent JVD GI/Abdominal GI/Abdominal exam: Present normal bowel sounds and soft; Absent organomegaly and tenderness Rectal Rectal exam: Present deferred Additional comments: Conway catheter in place Extremities Exam Extremities exam: Present full ROM, normal capillary refill and normal inspection; Absent tenderness Neurological Exam Neurological exam: Present alert, CN II-XII intact and oriented X3; Absent motor sensory deficit Psychiatric Psychiatric exam: Present normal affect and normal mood; Absent anxious and de pressed Skin Skin exam: Present dry; Absent intact Additional comments: Right lower leg being wrapped with Gael-wrap Discharge Data Data Completed and Pending Labs on day of discharge: Labs from last 24 hours 11/16/20 11/16/20 11/16/20 08:07 05:17 05:17 WBC 7.2 RBC 3.70 L Hgb 10.7 L Hct 35.8 L MCV 96.8 MCH 28.9 MCHC 29.9 L RDW 14.6 H Plt Count 238 MPV 9.3 Neut % (Auto) 70.8 Lymph % (Auto) 19.8 Sullivan % (Auto) 6.2 Eos % (Auto) 2.6 Baso % (Auto) 0.6 Lymph # (Auto) 1.43 L Sullivan # (Auto) 0.45 Eos # (Auto) 0.19 Baso # (Auto) 0.04 Absolute Neutrophils 5.11 Sodium 139 Potassium 3.8 Chloride 102 Carbon Dioxide 25 Anion Gap 12.0 BUN 7 Creatinine 0.8 GFR Calculation 108 Glucose 90 Calcium 8.3 L Total Bilirubin 0.3 AST 24 ALT 16 Alkaline Phosphatase 63 Total Protein 7.7 Albumin 2.3 L Globulin 5.4 H Albumin/Globulin Ratio 0.4 L Vancomycin Trough 18.5 Preliminary micro results at discharge 11/13/20 14:00 Anaerobic Culture - Preliminary Wound - Not Given Discharge Plan Patient/Caregiver Discharge Instructions Activity: as per physical therapy Diet: Regular Diet Prescriptions: New ciprofloxacin HCl [Cipro] 500 mg tablet 500 mg PO BID Qty: 14 RF: 0 metronidazole [Flagyl] 500 mg tablet 500 mg PO TID Qty: 21 RF: 0 Continued Narcan 4 mg/actuation spray,non-aerosol 1 spray INTRANASAL Q5MIN PRN (Reason: Opioid Overdose) RF: 0 verapamil 360 mg capsule,ext rel. pellets 24 hr 360 mg PO QDAY Qty: 90 RF: 1 hydrocodone-acetaminophen 10-325 mg tablet 1 tab PO .Q6-8H PRN (Reason: pain) Qty: 120 RF: 0 tramadol 300 mg tablet extended release 24 hr 300 mg PO QDAY Qty: 30 RF: 3 Other Ambulatory Orders: Wound Care Instructions (CONT) Location: None Selected Ordered By: Renny Davila Follow Up Plan Follow up with: Renny Davila MD [Physician] - ([facility] up [facility] 7-10 days after discharge) Shaniqua Witt ARNP [Primary Care Provider] - Patient Disposition: Home, Self-Care Prognosis: Serious Rehab Potential: Good I certify that the patient requires SNF services: No Overall status at discharge: patient is progressing back to baseline Discharge Orders: Discharge Order (Routine); Ordered 11/16/20 Ordered By: Pete Jay
--- NOTE | 2020-11-16 13:52 | General Surgery Progress Note ---
SUBJECTIVE Subjective Patient information: Note initiated : 11/16/20 at 1:46 pm Service Date, if different from initiated Date: [] Patient: Jamie Parker a 45 y/o M admitted on 11/09/20 for rt leg edema. Chief Complaint: [] Additional PMFSH (Level 3 Only): Saw patient along with Irina RN Inpatient wound care nurse and with patient's in room. Jamie is doing well. No pain over RLE and ambulating well with walker. Examined post surgical wounds after removing primary dressings. Constitutional Vitals: Vital Signs Temp Pulse Resp BP Pulse Ox 98.1 F 77 20 162/89 96 11/16/20 12:00 11/16/20 12:00 11/16/20 12:00 11/16/20 12:00 11/16/20 12:00 Period Temp Pulse Resp BP Sys/Paulino Pulse Ox Last 24 Hr 97.5 F-98.8 F 64-77 16-22 149-162/78-89 94-96 Intake and Output 11/15/20 11/16/20 11/16/20 21:59 05:59 13:59 Intake Total 700 1600 1900 Output Total 1600 1950 1800 Balance -900 -350 100 Weight 439 lb 3.2 oz Intake & Output: Intake & Output 11/15/20 11/16/20 11/16/20 21:59 05:59 13:59 Intake Total 700 1600 1900 Output Total 1600 1950 1800 Balance -900 -350 100 Weight 439 lb 3.2 oz Intake: IV 500 500 Vancomycin 1,500 mg In Sodium 500 500 Chloride 0.9% 500 ml @ 333.3 mls/hr IV Q24H ON LICENSE OF [facility] Rx#: [id number] Oral 700 1100 1400 Output: Urine Catheter Amount 1600 1950 1800 Other: Meal Dinner Lunch Percent of Meal Consumed 100% 50% Feeding Ability Assist with Tray Set Up Urine Appearance Clear Clear Uretheral ([place]) Clear Urine Color Dark Yellow Dark Yellow Pale Uretheral ([place]) Dark Yellow Urine Odor Normal Stool Size Large Stool Color Brown Stool Consistency Soft # Bowel Movements 1 Exam: AVSS. DAVID: Unremarkable. No interval changes noted. Clean wounds and healing wound base and edges, wound cultures reviewed. Skin bacteria. A/P Narrative A/P Narrative: Assessment: Satisfactory post surgical progress. On going local wound care discussed with patient's CG. She will be doing wound care at home after discharge. Plan: Resolved acute CSSSI / Sepsis. Healing post surgical wounds. Will need PO antibiotics (Per Hospitalist ) Local wound care as ordered. F/u at clinic after one week. Time Spent With Patient Time: Total time spent is greater than 50% in coordination of care (as documented) at patient's floor/unit and/or counseling patient: Total time spent with greater than 50% in coordination of care (as documented) at patient's floor/unit and/or counseling patient:: 15 - 24 minutes
== END 2020-11-16 15:56 | disposition home or self-care (01) | DRG 603 ==
LOC: ED 22:24 → ICU 11-09 02:11 → MEDSUR 11-10 11:37
PROVIDERS: ADMIT Internal Medicine; ATTEND Internal Medicine